=== PATIENT | male | born 1990 | race Two or more races ===

== ENCOUNTER 2024-07-09 17:57 | Inpatient (IN) | payer MEDICAID, OTHER ==
[~2024-07-09] VITALS: Ht 172.7 cm; Wt 74.7 kg
--- NOTE | 2024-07-09 18:51 | ECG ---
[facility] Test Date: 2024-07-09 Test Time: 18:06:15 Pat Name: EDI ROTH Department: ED Room: [address] [place] [address] Gender: M Biomedical Scientist: FEI : 1990 Requested By: LUCY MOORE Order Number: [id number] Reading MD: Jesus Will Measurements Intervals [place] Rate: 113 P: 47 IN: 131 QRS: 43 QRSD: 85 T: 31 QT: 291 QTc: 399 Interpretive Statements Sinus tachycardia Left ventricular hypertrophy ST elev, probable normal early repol pattern Baseline wander in lead(s) I,II,aVR,aVF Electronically Signed On 07-10-2024 10:26:29 PST by Jesus Will Please click the below link to view image of tracing.
--- NOTE | 2024-07-09 19:28 | ED.PDOC ---
HPI Comments HPI: Poor Historian. 34-year-old male presents to emergency department for evaluation of left-sided chest pain constant nonradiating for the last three days with the associated shortness of breath. Patient states he has been coughing. Patient denies use of drugs however he has history of methamphetamine abuse. Patient complains of generalized weakness Past Medcial History: Denies any. Past Surgical History: Finger surgery No known drug allergies REVIEW OF SYSTEMS: CONSTITUTIONAL: Denies acute: fever, diaphoresis, chills, HEAD: Denies acute: headache, photophobia Eyes: Denies acute: Double vision, vision loss, eye pain, eye discharge. EARS: Denies acute: tinnitus, hearing loss, ear discharge, ear pain, THROAT: Denies acute: sore throat, swelling, difficulty swallowing , pain with swallowing, change in voice. NECK: Denies acute: neck pain, neck swelling, stiff neck. HEART: Denies acute : , palpitations, LUNGS: Denies acute: wheezing, cough, hemoptysis ABDOMEN: Denies acute: abdominal pain, Nausea, Vomiting, diarrhea, melena , hematemesis, hematochezia SKIN: Denies acute: rash, redness, lesions, itchiness. EXTREMITIES: Denies acute: calf pain, numbness, tingling, weakness, denies pain in extremity. Denies acute: Low back pain. Neuro: Denies acute: focal neurological deficit, motor or sensory focal neurological deficit, tremors, seizure like activity, confusion, dizziness, change in mental status, loss of bowel or bladder function, cauda equina like symptoms. : Denies acute: dysuria, hematuria, flank pain, increase in urinary frequency. PSYCH: Denies acute: hallucination, suicidal ideation, homicidal ideation. PHYSICAL EXAM: General: no acute distress, awake and alert. Head: normocephalic, atraumatic. Neck: supple, trachea is midline, no swelling. Throat: Normal phonation. Eyes:, no erythema, no purulent discharge, no proptosis, no icterus. Heart: regular rate, regular rhythm, no significant murmur appreciated. Lungs: no apparent respiratory distress, Able to speak in full sentences. No wheezing, no rhonchi, no crackles. No stridors Clear to auscultation bilaterally. Abdomen: non tender to palpation, non distended, soft, no guarding, no rebound, + bowel sounds. Neuro: Awake, Alert, oriented to name, self, situation, follows commands GCS=15. Speech is normal. Skin: no petechia, no purpura, no cyanosis, non-pale, not jaundice. Lower extremities: --no - Pitting edema no deformity, no focal swelling, no calf TTP. Makes eye contact. moves all four extremities. Face: no apparent facial droop. Ambulating in the ED independently. Chief Complaint: Shortness of Breath Time Seen by MD: 18:17 Reviewed Notes: Nurses Notes, Allergies Allergies: Coded Allergies: NO KNOWN ALLERGIES (Unverified , 07/09/24) PT CONFIRMED NO KNOWN ALLERGIES. Information Source: Patient Mode of Arrival: Ambulatory Was a procedure done? Was a procedure done?: No X-Ray, Labs, Meds, VS Vital Signs Date Time Temp Pulse Resp B/P (MAP) Pulse Ox O2 Delivery O2 Flow Rate FiO2 07/09/24 18:22 99.1 110 18 110/69 (83) 96 07/09/24 18:17 113 Lab Test 07/09/24 20:55 07/09/24 19:25 07/09/24 19:15 Range/Units Troponin I High Sensitivity < 3 L < 3 L </=54 ng/L White Blood Count 16.1 H 4.4-10.8 10^3/uL Red Blood Count 4.82 4.5-5.90 10^6/uL Hemoglobin 14.6 13.5-17.5 g/dL Hematocrit 41.9 41.0-53.0 % Mean Corpuscular Volume 87.0 80.0-100.0 fL Mean Corpuscular Hemoglobin 30.2 28.0-32.0 pg Mean Corpuscular Hemoglobin Concent 34.8 32.0-36.0 g/dL Red Cell Distribution Width 13.9 11.8-14.3 % Platelet Count 299 140-450 10^3/uL Mean Platelet Volume 8.7 6.9-10.8 fL Neutrophils (%) (Auto) 37.0-80.0 % Lymphocytes (%) (Auto) 10.0-50.0 % Monocytes (%) (Auto) 0.0-12.0 % Basophils (%) (Auto) 0.0-2.0 % Neutrophils # (Auto) 1.6-8.6 10 ^3/uL Lymphocytes # (Auto) 0.4-5.4 10 ^3/uL Monocytes # (Auto) 0-1.3 10 ^3/uL Differential Total Cells Counted 100.0 100 Neutrophils % (Manual) 40 37.0-80.0 Band Neutrophils % (Manual) 45 Lymphocytes % (Manual) 7 L 10.0-50.0 Monocytes % (Manual) 8 0-12 Eosinophils % (Manual) 0 0-7 Basophils % (Manual) 0 0.0-2.0 Metamyelocytes % (manual) 0 Myelocytes % (Manual) 0 Promyelocytes % (Manual) 0 Blast Cells % (Manual) 0 Reactive Lymphocytes 0 Platelet Estimate Adequate Sodium Level 133 L 136-145 mmol/L Potassium Level 4.0 3.5-5.1 mmol/L Chloride Level 99 98-107 mmol/L Carbon Dioxide Level 23 20-31 mmol/L Anion Gap 11 5-15 Blood Urea Nitrogen 14 9-23 mg/dL Creatinine 1.17 0.700-1.30 mg/dL Glomerular Filtration Rate Calc 83 >90 mL/min BUN/Creatinine Ratio 12.0 10.0-20.0 Serum Glucose 123 H 74-106 mg/dL Lactic Acid Level 5.6 *H 0.4-2.0 mmol/L Calcium Level 9.5 8.7-10.4 mg/dL Magnesium Level 1.2 L 1.6-2.6 mg/dL Total Bilirubin 1.3 H 0.2-1.0 mg/dL Aspartate Amino Transferase (AST) 21 13-40 U/L Alanine Aminotransferase (ALT) 19 7-40 U/L Alkaline Phosphatase 50 46-116 U/L B-Type Natriuretic Peptide 258.70 0-100 pg/mL Total Protein 5.8 5.7-8.2 g/dL Albumin 3.9 3.2-4.8 g/dL Plasma/Serum Blood Alcohol < 3.0 <10 mg/dL Urine Color Light-orange Yellow Urine Clarity Turbid H Clear Urine pH 5.5 5.0-9.0 Urine Specific [place] 1.019 1.001-1.035 Urine Protein 1+ H Negative Urine Ketones Negative Negative Urine Blood Negative Negative /uL Urine Nitrite Negative Negative Urine Bilirubin Negative Negative Urine Urobilinogen Normal Negative mg/dL Urine Leukocyte Esterase Negative Negative /uL Urine RBC 1 0 - 3 /hpf Urine WBC 7 0 - 3 /hpf Urine Squamous Epithelial Cells None seen <5 /hpf Urine Bacteria None seen None Seen /hpf Urine Mucus Few None Seen Urine Sperm Present None Seen /hpf Urine Glucose Normal Normal mg/dL Urine Opiates Screen Neg NEGATIVE Urine Fentanyl Screen Neg NEGATIVE Urine Barbiturates Screen Neg NEGATIVE Urine Phencyclidine Screen Neg NEGATIVE Urine Amphetamines Screen Pos NEGATIVE Urine Benzodiazepines Screen Neg NEGATIVE Urine Cocaine Screen Neg NEGATIVE Urine Cannabinoids Screen Pos NEGATIVE [facility] [id number] [place] [id number] Ph: [phone] DIAGNOSTIC IMAGING Diagnostic Imaging Report : [id number] Signed PATIENT: EDI NORWOOD ACCT: [id number] UNIT: [id number] : 1990 LOC: ER ROOM / BED: / AGE / SEX: 34 / M ADM STATUS: REG ER SERVICE 18 ORDERING PHYSICIAN: LUCY MOORE DO PROCEDURE(s): CXRP - CHEST PORTABLE REASON: CP ORDER NUMBER(s): [id number], ACCESSION NUMBER(s): [id number] CHEST RADIOGRAPH Indication: CP Technique: Single frontal view of the chest was obtained Comparison: None FINDINGS: Lines and Tubes: None Lungs: Possible right infrahilar airspace disease and in the retrocardiac area of the left lower lobe. Pleura: No effusion. No pneumothorax. Cardiomediastinal contours: Unremarkable Bones: No acute osseous abnormality. IMPRESSION: 1. Possible right infrahilar left lower lobe airspace disease. This could also be due to overlying chest soft tissues. A lateral chest x-ray would be helpful. ATED BY: DIANA GERARDO Jr., DO DICTATED DATE/TIME: 07/09/241932 SIGNED BY: DIANA GERARDO Jr., SIGNED DATE/TIME: 07/09/241932 CC: Patient Education/Counseling: Diagnosis, Treatment Family Education/Counseling: No Family Present Departure 1 Departure Time of Disposition: 20:34 Impression: Primary Impression: Chest pain Additional Impressions: Dyspnea Pneumonia Leukocytosis Methamphetamine abuse Elevated lactic acid level Hypomagnesemia Disposition: ADMITTED INPATIENT Admit to: [facility] Condition: Guarded Discharged With: Self Critical Care Note Critical Care Time?: No I personally scribed for LUCY MOORE DO ([facility] on 07/09/24 at 20:20. Electronically submitted by [place] ([facility] I personally scribed for LUCY MOORE DO ([email or web address]) on 07/09/24 at 22:20. Electronically submitted by [place]eral[place] ([facility]). LUCY MOORE DO Jul 09, 2024 19:28
--- NOTE | 2024-07-09 19:35 | DVH ---
CHEST RADIOGRAPH Indication: CP Technique: Single frontal view of the chest was obtained Comparison: None FINDINGS: Lines and Tubes: None Lungs: Possible right infrahilar airspace disease and in the retrocardiac area of the left lower lobe . Pleura: No effusion. No pneumothorax. Cardiomediastinal contours: Unremarkable Bones: No acute osseous abnormality. IMPRESSION: 1. Possible right infrahilar left lower lobe airspace disease. This could also be due to overlying ch est soft tissues. A lateral chest x-ray would be helpful.
[2024-07-09 20:01] LABS: Hematocrit 41.9 % (41.0-53.0); Hemoglobin 14.6 g/dL (13.5-17.5); Mean Corpuscular Hemoglobin 30.2 pg (28.0-32.0); Mean Corpuscular Hgb Conc. 34.8 g/dL (32.0-36.0); Platelet Count (auto) 299 10^3/uL (140-450); Red Blood Cells 4.82 10^6/uL (4.5-5.90); Red Cell Distribution Width 13.9 % (11.8-14.3); White Blood Cell 16.1 10^3/uL (4.4-10.8)
[2024-07-09 20:14] LABS: Basophils % (manual) 0 (0.0-2.0); Blast Cells 0; Eosinophils % (manual) 0 (0-7); Metamyelocytes % 0; Myelocytes % 0; Promyelocytes % 0; Reactive Lymphocytes 0
[2024-07-09 20:21] LABS: Alanine Aminotransferase 19 U/L (7-40); Albumin 3.9 g/dL (3.2-4.8); Alkaline Phosphatase 50 U/L (46-116); Anion Gap 11 (5-15); Aspartate Aminotransferase 21 U/L (13-40); Blood Urea Nitrogen 14 mg/dL (9-23); Calcium 9.5 mg/dL (8.7-10.4); Carbon Dioxide 23 mmol/L (20-31); Chloride 99 mmol/L (98-107)
[2024-07-09 20:22] LABS: Total Protein 5.8 g/dL (5.7-8.2)
[2024-07-09 20:22] LABS: Urine Bacteria None Seen /hpf (None Seen)
[2024-07-09 20:27] LABS: Bilirubin, Total 1.3 mg/dL (0.2-1.0); Glucose 123 mg/dL (74-106); Sodium 133 mmol/L (136-145)
[2024-07-09 20:42] LABS: Blood Alcohol < 3.0 mg/dL (<10); Magnesium 1.2 mg/dL (1.6-2.6)
[2024-07-09 20:53] LABS: Lactic Acid w/Reflex 5.6 mmol/L (0.4-2.0)
[2024-07-09 20:56] LABS: Amphetamine Screen, Urine Pos (NEGATIVE); Barbiturate Scree,Urine Neg (NEGATIVE); Benzodiazephine Screen, Urine Neg (NEGATIVE); Cannabinoid Screen, Urine Pos (NEGATIVE); Cocaine Screen, Urine Neg (NEGATIVE); Opiate Scree,Urine Neg (NEGATIVE)
[2024-07-09 20:57] LABS: Phencyclidine Screen, Urine Neg (NEGATIVE)
[2024-07-09] MEDS ORDERED: TEMAZEPAM 15 MG CAP PO PRN (21:00)
--- NOTE | 2024-07-09 21:13 | DVHHP2 ---
History of Present Illness Reason for Visit: Shortness of breath History of Present Illness 34-year-old male presents for evaluation of gait shortness for breath. Patient reports a three day history of worsening shortness for breath with associated productive cough with yellow/green phlegm and intermittent fever. Denies chest pain or palpitations. Denies any other acute complaints at the moment. Past Medical History Denies Past Surgical History Denies Family History Noncontributory Smoke: No ALCOHOL: occassional Drugs: Other (Amphetamine) Lives: Homeless Review of Systems Review of Systems Review of systems are currently negative otherwise addressed in HPI. Exam Vital Signs Vital Signs Date Time Temp Pulse Resp B/P (MAP) Pulse Ox O2 Delivery O2 Flow Rate FiO2 07/09/24 18:22 99.1 110 18 110/69 (83) 96 Exam Gen: 34-year-old male in mild distress Skin: Warm, dry, normal color and texture, no rash. HEENT: Normocephalic atraumatic, mucous membranes moist and pink. Neck: Cervical and supraclavicular nodes normal without enlargement, trachea is midline, thyroid gland is normal without masses. Pulmonary: Diminished breath sounds bilaterally Cardiac: Regular rate and rhythm. No murmur Abdomen: Soft, nontender, nondistended, bowel sounds present all 4 quadrants, no guarding, no rigidity, no organomegaly. Extremities: No cyanosis, clubbing, no edema Neuro: Cranial nerves II through XII grossly intact, normal affect and speech, no focal motor deficits. Labs/Xrays ORDERING PHYSICIAN: LUCY MOORE DO PROCEDURE(s): CXRP - CHEST PORTABLE REASON: ORDER NUMBER(s): [id number], ACCESSION NUMBER(s): [id number] CHEST RADIOGRAPH Indication: CP Technique: Single frontal view of the chest was obtained Comparison: None FINDINGS: Lines and Tubes: None Lungs: Possible right infrahilar airspace disease and in the retrocardiac area of the left lower lobe. Pleura: No effusion. No pneumothorax. Cardiomediastinal contours: Unremarkable Bones: No acute osseous abnormality. IMPRESSION: 1. Possible right infrahilar left lower lobe airspace disease. This could also be due to overlying chest soft tissues. A lateral chest x-ray would be helpful. Labs Test 1/8/25 20:55 07/09/24 19:25 07/09/24 19:15 Range/Units White Blood Count 16.1 H 4.4-10.8 10^3/uL Red Blood Count 4.82 4.5-5.90 10^6/uL Hemoglobin 14.6 13.5-17.5 g/dL Hematocrit 41.9 41.0-53.0 % Mean Corpuscular Volume 87.0 80.0-100.0 fL Mean Corpuscular Hemoglobin 30.2 28.0-32.0 pg Mean Corpuscular Hemoglobin Concent 34.8 32.0-36.0 g/dL Red Cell Distribution Width 13.9 11.8-14.3 % Platelet Count 299 140-450 10^3/uL Mean Platelet Volume 8.7 6.9-10.8 fL Neutrophils (%) (Auto) 37.0-80.0 % Lymphocytes (%) (Auto) 10.0-50.0 % Monocytes (%) (Auto) 0.0-12.0 % Basophils (%) (Auto) 0.0-2.0 % Neutrophils # (Auto) 1.6-8.6 10 ^3/uL Lymphocytes # (Auto) 0.4-5.4 10 ^3/uL Monocytes # (Auto) 0-1.3 10 ^3/uL Sodium Level 133 L 136-145 mmol/L Potassium Level 4.0 3.5-5.1 mmol/L Chloride Level 99 98-107 mmol/L Carbon Dioxide Level 23 20-31 mmol/L Anion Gap 11 5-15 Blood Urea Nitrogen 14 9-23 mg/dL Creatinine 1.17 0.700-1.30 mg/dL Glomerular Filtration Rate Calc 83 >90 mL/min BUN/Creatinine Ratio 12.0 10.0-20.0 Serum Glucose 123 H 74-106 mg/dL Lactic Acid Level 5.6 *H 0.4-2.0 mmol/L Calcium Level 9.5 8.7-10.4 mg/dL Magnesium Level 1.2 L 1.6-2.6 mg/dL Total Bilirubin 1.3 H 0.2-1.0 mg/dL Aspartate Amino Transferase (AST) 21 13-40 U/L Alanine Aminotransferase (ALT) 19 7-40 U/L Alkaline Phosphatase 50 46-116 U/L B-Type Natriuretic Peptide 258.70 0-100 pg/mL Total Protein 5.8 5.7-8.2 g/dL Albumin 3.9 3.2-4.8 g/dL Plasma/Serum Blood Alcohol < 3.0 <10 mg/dL Urine Opiates Screen Neg NEGATIVE Urine Fentanyl Screen Neg NEGATIVE Urine Barbiturates Screen Neg NEGATIVE Urine Phencyclidine Screen Neg NEGATIVE Urine Amphetamines Screen Pos NEGATIVE Urine Benzodiazepines Screen Neg NEGATIVE Urine Cocaine Screen Neg NEGATIVE Urine Cannabinoids Screen Pos NEGATIVE Assessment/Plan Assessment/Plan Assessment Community-acquired pneumonia Acute respiratory distress Hypomagnesemia Leukocytosis Plan Admit the patient to Med surge to the hospitalist Rocephin/azithromycin Med nebs Replete electrolytes Continue treatment per orders. Plan discussed with: Patient My Orders Orders - CHRISSIE PEÑALOZA Procedure Category Date Status Time Rapid Influenza A&B LAB 07/09/24 Transmitted 21:00 Azithromycin 500mg/ PHA 07/10/24 Logged 250ml (Zithromax 50 10:00 Ceftriaxone Ivpb PHA 07/10/24 Transmitted Rocephin 09:00 Magnesium Josh PHA 07/09/24 Transmitted 21:00 Albuterol Medneb PHA 07/09/24 Transmitted (Ventolin Medneb) 21:00 Methylprednisolone PHA 07/09/24 Transmitted Sod Succ (Solu Medrol 21:00 Basic Metabolic Panel LAB 07/10/24 Verified 04:00 Admit ADMIT 07/09/24 Transmitted 21:00 Temazepam (Restoril) PHA 07/09/24 Transmitted 21:00 Ondansetron Hcl PHA 07/09/24 Transmitted (Zofran) 21:00 Complete Blood Count LAB 07/10/24 Verified 04:00 Condition: Stable BALBIR 07/09/24 Transmitted 21:00 Acetaminophen Tablet PHA 07/09/24 Transmitted (Tylenol Tablet) 21:00 Bedrest With Bathroom BALBIR 07/09/24 Transmitted Privileg 21:00 Regular Diet DIET 07/10/24 Transmitted Breakfast Date of Service: Jul 09, 2024 Billing Provider: CHRISSIE PEÑALOZA Common Visit Codes: [id number] INP/OBS CARE (HIGH) CHRISSIE PEÑALOZA Jul 09, 2024 21:13
[2024-07-09 21:15] LABS: Band Neutrophils % (manual) 45; Lymphocytes % (manual) 7 (10.0-50.0); Monocytes % (manual) 8 (0-12)
[2024-07-09 21:16] LABS: Platelet Estimate Adequate
[2024-07-09 21:18] LABS: Urine Blood Negative /uL (Negative); Urine Clarity Turbid (Clear); Urine Color Light-Orange (Yellow); Urine Mucus FEW (None Seen); Urine Protein, UAD 1+ (Negative); Urine Specific Gravity 1.019 (1.001-1.035); Urine Sperm PRESENT /hpf (None Seen); Urine Squamous Epithelial Cell None Seen /hpf (<5); Urine Urobilinogen Normal (Negative); Urine WBC 7 /hpf (0 - 3); Urine pH 5.5 (5.0-9.0)
[2024-07-10] VITALS (12 sets, daily range): BP systolic 80–110; BP diastolic 33–69; PULSE 88–110; RESP 16–20; TEMP 97.8–100.4; O2SAT 93–99
[2024-07-10] MEDS: D5W/SOD CHLO 0.9% 1,000 ML IV SCH (01:00)
[2024-07-10] MEDS: cefTRIAXone 1GM/50ML D5W 50 ML IV SCH (01:30)
[2024-07-10] MEDS: ACETAMINOPHEN 325 MG TAB PO PRN (02:45)
[2024-07-10] MEDS: MAGNESIUM SULFATE 1GM/100ML 100 ML IV SCH ×2 (02:51→04:00)
[2024-07-10 04:44] LABS: Hemoglobin 13.5 g/dL (13.5-17.5); Mean Corpuscular Hemoglobin 30.1 pg (28.0-32.0); Mean Corpuscular Hgb Conc. 34.5 g/dL (32.0-36.0); Mean Corpuscular Volume 87.3 fL (80.0-100.0); Platelet Count (auto) 243 10^3/uL (140-450); Red Blood Cells 4.47 10^6/uL (4.5-5.90); Red Cell Distribution Width 14.1 % (11.8-14.3); White Blood Cell 15.1 10^3/uL (4.4-10.8)
[2024-07-10 04:50] LABS: Potassium 4.4 mmol/L (3.5-5.1)
[2024-07-10 04:51] LABS: Anion Gap 7 (5-15); Carbon Dioxide 26 mmol/L (20-31)
[2024-07-10 04:56] LABS: BUN/Creatinine Ratio 19.5 (10.0-20.0); Glucose 103 mg/dL (74-106)
[2024-07-10 05:00] LABS: Basophils % (manual) 0 (0.0-2.0); Blast Cells 0; Eosinophils % (manual) 0 (0-7); Myelocytes % 0; Promyelocytes % 0; Reactive Lymphocytes 0
[2024-07-10 05:01] LABS: Blood Urea Nitrogen 23 mg/dL (9-23); Chloride 96 mmol/L (98-107); Sodium 129 mmol/L (136-145)
[2024-07-10] MEDS: ALBUTEROL SULF 2.5 MG/0.5ML(0.5%) NEB SOLN NEB PRN (06:42)
[2024-07-10] MEDS: methylPREDNISolone SOD SUCC 125 MG/2 ML VL IV ONE (07:10)
[2024-07-10] MEDS: cefTRIAXone 1GM/50ML D5W 50 ML IV ONE (07:17)
[2024-07-10 08:26] LABS: Band Neutrophils % (manual) 40; Metamyelocytes % 2
[2024-07-10 08:27] LABS: Lymphocytes % (manual) 5 (10.0-50.0); Monocytes % (manual) 2 (0-12)
[2024-07-10 08:28] LABS: Platelet Estimate Adequate; RBC Morphology Normal
[2024-07-10 08:52] LABS: COVID19 ANTIGEN SOFIA FIA NEGATIVE (NEGATIVE); Rapid Influenza A Negative (Negative); Rapid Influenza B Negative (Negative)
[2024-07-10] MEDS: AZITHROMYCIN 500MG/ 250ML 250 ML IV SCH (10:00)
--- NOTE | 2024-07-10 10:22 | DVHPNRES ---
Progress Note Date Seen: Jul 10, 2024 Resident Creating Document: FAB MELGAR RESIDENT Medical Necessity Reason Pt with a Central, PICC or Fol: No Subjective Review of Systems Patient is 34 years old male with polysubstance abuse came with a complaint of shortness of breaths for last 2 days. As per patient patient has been having productive cough with greenish yellowish phlegm and intermittent fever for last 2 days. Patient also reported feeling short of breath for the same duration. Patient reported any sick contact. Patient denied any dysuria, constipation or diarrhea, acute joint pain or swelling, dysarthria or change in vision. Initial lab workup revealed leukocytosis with WBC 16.1, mild hyponatremia with sodium 130 3> 129, lactic acidosis with lactic acid 5.6, hypomagnesemia with a magnesium 1.2, bilirubin 1.3, mildly elevated BNP 258, UDS positive for amphetamine and cannabinoids. Urinalysis negative for UTI. Chest x-ray - Possible right infrahilar left lower lobe airspace disease. This could also be due to overlying chest soft tissues. Echo 2D revealed-Ejection fraction is estimated at 50-55%. PA systolic pressure is estimated at 20-25 mm Hg. PMH-nonsignificant PSH- none Allergy- NKDA Personal History/ Social History- alcoholic, smoker, uses polysubstance like cannabinoids and amphetamine Patient was seen today at the bedside. Gastrointestinal- denies any rectal bleeding, nausea or vomiting Musculoskeletal-denies acute joint swelling or tenderness or redness Neurological- denies acute dysarthria, dysphagia, change in vision Psychiatry- denies depression or SI or HI Skin- denies acute rash or purpura Patient was seen today for clinical evaluation. Labs and chart reviewed. Patient had mild fever last night 100.4 F, patient still on NC O2 2 liter/minute for acute hypoxic respiratory failure. Patient on IV antibiotic ceftriaxone and azithromycin, tolerating well, no side effect noted, ordered blood culture, urine culture, respiratory culture for further evaluation and care. Objective vital signs Vital Sign Date Time Temp Pulse Resp B/P (MAP) Pulse Ox O2 Delivery O2 Flow Rate FiO2 07/10/24 09:30 98.1 88 16 88/37 (54) 99 98.1 07/10/24 06:42 Nasal Cannula* 2 28 medications Current Medications Medications Dose Ordered Sig/Cj Route Start Time Stop Time Status Last Admin Dose Admin Azithromycin 250 ml @ 125 mls/hr DAILY IV 07/10/24 10:00 Ceftriaxone Sodium 50 ml @ 100 mls/hr DAILY@2300 IV 07/10/24 23:00 Albuterol 2.5 mg Q6HPRN PRN NEB 07/09/24 21:00 07/10/24 06:42 2.5 MG Temazepam 15 mg QHSP PRN PO 07/09/24 21:00 Ondansetron HCl 4 mg Q4HP PRN IV 07/09/24 21:00 Acetaminophen 650 mg Q6HP PRN PO 07/09/24 21:00 07/10/24 02:45 650 MG Dextrose/Sodium Chloride 1,000 ml @ 125 mls/hr Q8H IV 07/10/24 07:15 Morphine Sulfate 1 mg Q6HP PRN IV 07/10/24 08:30 Examination General examination- awake, alert, oriented, conversant HEENT- PEERLA, no acute nasal discharge Cardiovascular- S1-S2 audible, rate and rhythm regular, no murmur Respiratory-bilateral lung congestion + Gastrointestinal-nontender, bowel sound+. Nondistended Musculoskeletal-no acute joint swelling or tenderness or redness# Lower extremity- no leg edema Neurological- cranial nerves intact, no acute dysarthria or dysphagia Psychiatry- denies depression or SI or HI Skin- no acute rash or purpura laboratory and microbiology Laboratory Tests 07/10/24 04:20 Test 07/10/24 04:20 Range/Units Serum Glucose 103 74-106 mg/dL Problem List/Assessment/Plan Problem List/Assessment/Plan #Sepsis likely due to pneumonia-patient was fever, tachycardia, leukocytosis, hypotension #Acute hypoxic respiratory failure likely due to pneumonia Gram-positive versus Gram-negative #Acute pneumonia Gram-positive versus Gram-negative #Acute chest pain likely due to pruritus, rule out acute coronary syndrome #Leukocytosis likely due to acute Pneumonia #Hyponatremia-asymptomatic #Lactic acidosis #Polysubstance abuse-UDS positive for cannabinoids and amphetamine-patient was counseled about the effect of polysubstance on health Patient was counseled about the effect of alcoholism/smoking/polysubstance abuse on health Continue ceftriaxone 1 g IV daily Continue azithromycin 500 mg IV daily Continue D5ANS at rate of 125 mL/hour Nebulization as prescribed Monitor vitals Goals of care/advance care planning; FULL CODE; discussed with the patient >15 minutes PUD prophylaxis: Famotidine DVT prophylaxis: Plan discussed with Dr. Alvarez, nursing staff, patient Total time spent on patient evaluation, chart review, assessment and plan, discussion discussion >30 minutes Plan discussed with: Patient Plan discussed with: Patient, Other (RN) My Orders My Orders Orders - FAB MELGAR Procedure Category Date Status Time D5w/Sod Chlo 0.9% PHA 07/10/24 In Process (D5w Ns 0.9%) 07:15 Morphine Sulfate PHA 07/10/24 In Process Injection 08:30 Echo 2d Mode Cardiac US 07/10/24 Logged DOP 08:48 Electrocardigram EKG 07/10/24 Logged 09:54 Date of Service: Jul 10, 2024 Billing Provider: WILEY ALVAREZ MD Common Visit Codes: [id number] INP/OBS CARE(HIGH) FAB MELGAR Jul 10, 2024 10:22 WILEY ALVAREZ MD Jul 10, 2024 18:58
[2024-07-10] MEDS: SODIUM CHLORIDE 0.9% 1,000 ML IV ONE ×3 (10:47→23:00)
[2024-07-10] MEDS: THIAMINE 100mg/ml INJ (200mg/2ml VIAL) IM ONE (13:10)
[2024-07-10] MEDS: FOLIC ACID 1 MG in D5W 5% 50 ML INJ ONE (13:11)
--- NOTE | 2024-07-10 15:10 | DVHSR ---
APPROVED REPORT EXAM: Two-dimensional and M-mode echocardiogram with Doppler and color Doppler. Blood Pressure: 97/43 mmHg INDICATION Chest Pain RISK FACTORS Height: 5'8", Weight: 149 DIMENSIONS LVDd5.2 (3.8-5.7cm)LA (2D)4.0 (1.9-4.0cm)Aortic Root3.2 (2.0-3.7cm) LVDs4.2 (2.5-4.0cm)LA (MM) (1.9-4.0cm)Aortic Cusp Exc1.9 (1.5-2.0cm) EF (%) 50.0 (55-70%)Rt. Atrium4.3 (1.9-4.0cm)Asc. Aorta3.1 cm IVSd1.0 (0.7-1.1cm)RV (D)4.5 (1.8-2.4cm) PWd0.9 (0.7-1.1cm) Mitral Valve MitralMitral Stenosis E wave0.75m/sMV Mean GR.mmHg A wave0.86m/sMV Peak GR.mmHg E/A ratio0.92D MVAcm2 DECEL [id number] 1/2 Timems Aortic Valve Aortic ValveAortic Stenosis V11.11m/Yimi Mean GR.4mmHg V21.23m/Yimi Peak GR.6mmHg LVOT Diameter2.3 (1.8-2.4cm)Doppler AVA3.75cm2 Pulmonic Valve V20.84m/s Tricuspid Valve TR Velocity2.10m/s [id number] LEFT VENTRICLE The left ventricle is of normal size. Wall thickness is normal. Ejection fraction is low normal and is estimated at 50-55%. There is no regional wall motion abnormalities. Diastolic function appears to be normal. E to E prime ratio is in the normal range. RIGHT VENTRICLE The right ventricle is of normal size. Right ventricular systolic function is normal. ATRIA Both atria are of normal size. MITRAL VALVE Normal structure and function. No significant mitral regurgitation. PULMONIC VALVE Likely normal. TRICUSPID VALVE Normal structure and function. There is trace tricuspid regurgitation. PA systolic pressure is karson mated at 20-25 mm Hg. AORTIC VALVE Normal structure and function. GREAT VESSELS The aortic root is of normal size. Proximal ascending aorta is of normal size. PERICARDIAL EFFUSION There is no pericardial effusion. IVC is of normal size and collapses normally with inspiration. Conclusion Normal left ventricular size with low-normal systolic function. Ejection fraction is estimated at 50-55%. Normal right ventricular size and systolic function. No hemodynamically significant valvular disease. PA systolic pressure is estimated at 20-25 mm Hg. No pericardial effusion.
[2024-07-10] MEDS: FAMOTIDINE (10MG/ML) 2ML VL IV ONE (21:36)
[2024-07-10] MEDS: MORPHINE SULFATE INJ 2 MG/ml SYRG IV ONE (21:36)
[2024-07-10] MEDS: FAMOTIDINE (10MG/ML) 2ML VL IV SCH (22:00)
[2024-07-11] VITALS (9 sets, daily range): BP systolic 106–112; BP diastolic 59–62; PULSE 75–94; RESP 16–21; TEMP 98.7–99.4; O2SAT 94–100
[2024-07-11] MEDS: NOREPINEPHRINE 8 MG/250ML KIT 250 ML IV SCH (02:31)
[2024-07-11] MEDS: ALBUTEROL SULF 2.5 MG/0.5ML(0.5%) NEB SOLN NEB ONE (07:00)
[2024-07-11] MEDS: IPRATROPIUM BROM 0.5 MG/2.5ML INH SOL NEB ONE (07:00)
[2024-07-11] MEDS: SODIUM CHLORIDE 0.9% 1,000 ML IV ONE (07:10)
--- NOTE | 2024-07-11 07:38 | DVH ---
CLINICAL INFORMATION: 34 years old, Male; shortness of breath. TECHNIQUE: Frontal and lateral chest radiographs were obtained. COMPARISON: None FINDINGS: Lungs: Atelectasis in the lung bases. No focal consolidation visualized. No pneumothorax or pleural e ffusion visualized. Cardiac: Heart size is within normal limits. Pulmonary vasculature: Unremarkable Mediastinum/saida: Within normal limits. Bones: No evidence of acute osseous abnormality. Other: No other significant finding. IMPRESSION: Bibasilar atelectasis with no focal consolidation visualized. Otherwise, no evidence of acute disease in the chest.
[2024-07-11 07:44] LABS: Basophils # (auto) 0 10 ^3/uL (0-0.2); Basophils % (auto) 0.1 % (0.0-2.0); Eosinophils # (auto) 0 10 ^3/uL (0-0.8); Hematocrit 34.5 % (41.0-53.0); Hemoglobin 11.7 g/dL (13.5-17.5); Lymphocytes # (auto) 0.9 10 ^3/uL (0.4-5.4); Mean Corpuscular Hemoglobin 29.8 pg (28.0-32.0); Mean Corpuscular Hgb Conc. 33.9 g/dL (32.0-36.0); Monocytes # (auto) 0.7 10 ^3/uL (0-1.3); Monocytes % (auto) 3.1 % (0.0-12.0); Neutrophils # (auto) 20.5 10 ^3/uL (1.6-8.6); Neutrophils % (auto) 92.8 % (37.0-80.0); Platelet Count (auto) 260 10^3/uL (140-450); Red Blood Cells 3.92 10^6/uL (4.5-5.90); Red Cell Distribution Width 14.2 % (11.8-14.3); White Blood Cell 22.2 10^3/uL (4.4-10.8)
[2024-07-11 07:45] LABS: Anion Gap 5 (5-15); Carbon Dioxide 25 mmol/L (20-31); Chloride 106 mmol/L (98-107); Potassium 4.5 mmol/L (3.5-5.1); Sodium 136 mmol/L (136-145)
[2024-07-11 07:46] LABS: Calcium 9.1 mg/dL (8.7-10.4)
[2024-07-11 07:51] LABS: BUN/Creatinine Ratio 24.3 (10.0-20.0); Blood Urea Nitrogen 17 mg/dL (9-23)
[2024-07-11 07:54] LABS: Glucose 111 mg/dL (74-106); Magnesium 2.6 mg/dL (1.6-2.6)
[2024-07-11] MEDS: MEROPENEM 1GM IVPB 50 ML IV ONE (09:35)
[2024-07-11] MEDS: MORPHINE SULFATE INJ 2 MG/ml SYRG IV PRN (11:30)
[2024-07-11] MEDS: ONDANSETRON HCL 4 MG/2 ML VIAL IV PRN (11:30)
[2024-07-11] MEDS: IPRATROPIUM BROM 0.5 MG/2.5ML INH SOL NEB SCH (11:45)
[2024-07-11] MEDS ORDERED: VANCOMYCIN PER PHARMACY 0 MG IV SCH (11:45)
[2024-07-11] MEDS: ALBUTEROL SULF 2.5 MG/0.5ML(0.5%) NEB SOLN NEB SCH (11:45)
[2024-07-11] MEDS: VANCOMYCIN 1.5GM/300ML 300 ML IV ONE (13:16)
--- NOTE | 2024-07-11 14:59 | DVHPNRES ---
Progress Note Date Seen: Jul 11, 2024 Resident Creating Document: FAB MELGAR RESIDENT Medical Necessity Reason Pt with a Central, PICC or Fol: No Subjective Review of Systems Patient is 34 years old male with polysubstance abuse came with a complaint of shortness of breaths for last 2 days. As per patient patient has been having productive cough with greenish yellowish phlegm and intermittent fever for last 2 days. Patient also reported feeling short of breath for the same duration. Patient reported any sick contact. Patient denied any dysuria, constipation or diarrhea, acute joint pain or swelling, dysarthria or change in vision. Initial lab workup revealed leukocytosis with WBC 16.1, mild hyponatremia with sodium 130 3> 129, lactic acidosis with lactic acid 5.6, hypomagnesemia with a magnesium 1.2, bilirubin 1.3, mildly elevated BNP 258, UDS positive for amphetamine and cannabinoids. Urinalysis negative for UTI. Chest x-ray - Possible right infrahilar left lower lobe airspace disease. This could also be due to overlying chest soft tissues. Echo 2D revealed-Ejection fraction is estimated at 50-55%. PA systolic pressure is estimated at 20-25 mm Hg. PMH-nonsignificant PSH- none Allergy- NKDA Personal History/ Social History- alcoholic, smoker, uses polysubstance like cannabinoids and amphetamine Patient was seen today at the bedside. Gastrointestinal- denies any rectal bleeding, nausea or vomiting Musculoskeletal-denies acute joint swelling or tenderness or redness Neurological- denies acute dysarthria, dysphagia, change in vision Psychiatry- denies depression or SI or HI Skin- denies acute rash or purpura Patient was seen today for clinical evaluation. Labs and chart reviewed. Patient is tired looking, leukocyte was elevated 16.1> 22.2. Discontinued ceftriaxone and azithromycin and ordered meropenem and vancomycin. Objective vital signs Vital Sign Date Time Temp Pulse Resp B/P (MAP) Pulse Ox O2 Delivery O2 Flow Rate FiO2 07/11/24 12:28 78 18 100 07/11/24 12:20 Room Air* 0 21 07/11/24 12:00 108/67 07/11/24 08:00 98.0 98.0 Total Intake and Output 07/10/24 07/10/24 07/11/24 15:00 23:00 07:00 Intake Total 1000 ml 2255.00 ml Output Total 1300 ml Balance 1000 ml 955.00 ml medications Current Medications Medications Dose Ordered Sig/Cj Route Start Time Stop Time Status Last Admin Dose Admin Albuterol 2.5 mg Q6HPRN PRN NEB 07/09/24 21:00 07/10/24 06:42 2.5 MG Temazepam 15 mg QHSP PRN PO 07/09/24 21:00 Ondansetron HCl 4 mg Q4HP PRN IV 07/09/24 21:00 07/11/24 11:30 4 MG Acetaminophen 650 mg Q6HP PRN PO 07/09/24 21:00 07/10/24 02:45 650 MG Dextrose/Sodium Chloride 1,000 ml @ 125 mls/hr Q8H IV 07/10/24 07:15 07/11/24 10:48 125 MLS/HR Morphine Sulfate 1 mg Q6HP PRN IV 07/10/24 08:30 07/11/24 11:30 1 MG Famotidine 20 mg Q12HR IV 07/10/24 22:00 07/11/24 10:45 20 MG Norepinephrine Bitartrate 250 ml @ 3.75 mls/hr Q24H IV 07/11/24 02:15 07/11/24 02:31 3.75 MLS/HR Albuterol 2.5 mg Q6HWA [facility] 07/11/24 12:00 07/11/24 12:20 2.5 MG Ipratropium [place] 0.5 mg Q6HWA [facility] 07/11/24 12:00 07/11/24 12:20 0.5 MG Meropenem 50 ml @ 17 mls/hr Q8HR IV 07/11/24 14:00 Vancomycin HCl 0 ml @ 0 mls/hr UD IV 07/11/24 11:45 Vancomycin HCl 250 ml @ 200 mls/hr Q12H IV 07/12/24 01:00 Examination General examination- awake, alert, oriented, conversant HEENT- PEERLA, no acute nasal discharge Cardiovascular- S1-S2 audible, rate and rhythm regular, no murmur Respiratory-bilateral lung congestion + Gastrointestinal-nontender, bowel sound+. Nondistended Musculoskeletal-no acute joint swelling or tenderness or redness# Lower extremity- no leg edema Neurological- cranial nerves intact, no acute dysarthria or dysphagia Psychiatry- denies depression or SI or HI Skin- no acute rash or purpura laboratory and microbiology Laboratory Tests 07/11/24 06:10 Test 07/11/24 06:10 Range/Units Serum Glucose 111 H 74-106 mg/dL Microbiology Date/Time Source Procedure Growth Status 07/10/24 12:00 Blood Blood Culture - Preliminary NO GROWTH AFTER 24 HOURS OF INCUBATION. Resulted 07/09/24 19:15 Voided Urine Urine Culture - Preliminary Resulted Problem List/Assessment/Plan Problem List/Assessment/Plan #Sepsis likely due to pneumonia-patient was fever, tachycardia, leukocytosis, hypotension #Acute hypoxic respiratory failure likely due to pneumonia Gram-positive versus Gram-negative #Acute pneumonia Gram-positive versus Gram-negative #Acute chest pain likely due to pruritus, rule out acute coronary syndrome #Leukocytosis likely due to acute Pneumonia #Hyponatremia-asymptomatic #Lactic acidosis #Polysubstance abuse-UDS positive for cannabinoids and amphetamine-patient was counseled about the effect of polysubstance on health Patient was counseled about the effect of alcoholism/smoking/polysubstance abuse on health Continue meropenem 1 g IV q.8h Vancomycin as per pharmacy Continue D5ANS at rate of 125 mL/hour Nebulization as prescribed Monitor vitals Goals of care/advance care planning; FULL CODE; discussed with the patient >15 minutes PUD prophylaxis: Famotidine DVT prophylaxis: Plan discussed with Dr. Alvarez, nursing staff, patient Total time spent on patient evaluation, chart review, assessment and plan, discussion discussion >30 minutes Plan discussed with: Patient Plan discussed with: Patient, Other (RN) My Orders My Orders Orders - FAB MELGAR RESIDENT Procedure Category Date Status Time Famotidine Injection PHA 07/10/24 In Process (Pepcid Injection) 22:00 Transfer Orders XFER 07/10/24 Transmitted 18:59 Chest Two Views XY 07/11/24 Resulted Routine 06:34 Albuterol Medneb PHA 07/11/24 In Process (Ventolin Medneb) 12:00 Ipratropium Medneb PHA 07/11/24 In Process (Atrovent Medneb) 12:00 Meropenem 1gm Ivpb PHA 07/11/24 In Process (Merrem 1gm/ Ns) 14:00 Vancomycin Per PHA 07/11/24 In Process Pharmacy 11:45 Vancomycin PHA 07/12/24 In Process 1.25gm/250ml 01:00 Vancomycin,Trough LAB 07/13/24 Verified 00:00 Vancomycin Per BALBIR 07/13/24 In Process Pharmacy Protoc 00:00 Basic Metabolic Panel LAB 07/13/24 Verified 04:00 Transfer Orders XFER 07/11/24 Transmitted 14:52 Communication Order ORDERS 07/11/24 Transmitted 14:52 Date of Service: Jul 11, 2024 Billing Provider: WILEY ALVAREZ MD Common Visit Codes: [id number] INP/OBS CARE(HIGH) FAB MELGAR RESIDENT Jul 11, 2024 14:59 WILEY ALVAREZ MD Jul 13, 2024 18:21
[2024-07-11] MEDS: MEROPENEM 1GM IVPB 50 ML IV SCH (15:00)
[2024-07-12] VITALS (9 sets, daily range): BP systolic 117–135; BP diastolic 70–82; PULSE 78–110; RESP 16–36; TEMP 98–102.5; O2SAT 95–99
[2024-07-12] MEDS: VANCOMYCIN 1.25GM/250ML 250 ML IV SCH (01:49)
[2024-07-12] MEDS: SODIUM CHLORIDE 0.9% 1,000 ML IV ONE (05:33)
[2024-07-12 08:40] LABS: Basophils # (auto) 0 10 ^3/uL (0-0.2); Basophils % (auto) 0.2 % (0.0-2.0); Eosinophils # (auto) 0.1 10 ^3/uL (0-0.8); Eosinophils % (auto) 0.3 % (0.0-7.0); Hematocrit 38.3 % (41.0-53.0); Hemoglobin 12.4 g/dL (13.5-17.5); Lymphocytes # (auto) 0.7 10 ^3/uL (0.4-5.4); Lymphocytes % (auto) 3.2 % (10.0-50.0); Mean Corpuscular Hemoglobin 29.9 pg (28.0-32.0); Mean Corpuscular Hgb Conc. 32.5 g/dL (32.0-36.0); Mean Corpuscular Volume 92.1 fL (80.0-100.0); Monocytes % (auto) 4.8 % (0.0-12.0); Neutrophils # (auto) 19.5 10 ^3/uL (1.6-8.6); Neutrophils % (auto) 91.5 % (37.0-80.0); Platelet Count (auto) 277 10^3/uL (140-450); Red Blood Cells 4.16 10^6/uL (4.5-5.90); Red Cell Distribution Width 14.5 % (11.8-14.3); White Blood Cell 21.3 10^3/uL (4.4-10.8)
[2024-07-12] MEDS: AZITHROMYCIN 500MG/ 250ML 250 ML IV ONE (10:45)
[2024-07-12 11:10] LABS: Alanine Aminotransferase 14 U/L (7-40); Albumin 3.3 g/dL (3.2-4.8); Alkaline Phosphatase 109 U/L (46-116); Anion Gap 11 (5-15); Aspartate Aminotransferase 26 U/L (13-40); BUN/Creatinine Ratio 14.3 (10.0-20.0); Blood Urea Nitrogen 10 mg/dL (9-23); Calcium 8.9 mg/dL (8.7-10.4); Glucose 104 mg/dL (74-106); Magnesium 1.8 mg/dL (1.6-2.6); Potassium 4.3 mmol/L (3.5-5.1); Sodium 138 mmol/L (136-145)
[2024-07-12] MEDS: guaiFENesin 200 MG/10 ML UD PO ONE (11:12)
[2024-07-12 11:15] LABS: Bilirubin, Total 0.2 mg/dL (0.2-1.0); Carbon Dioxide 19 mmol/L (20-31); Chloride 108 mmol/L (98-107); Total Protein 5.5 g/dL (5.7-8.2)
--- NOTE | 2024-07-12 11:25 | DVHPNRES ---
Progress Note Date Seen: Jul 12, 2024 Resident Creating Document: FAB MELGAR RESIDENT Medical Necessity Reason Pt with a Central, PICC or Fol: No Subjective Review of Systems Patient is 34 years old male with polysubstance abuse came with a complaint of shortness of breaths for last 2 days. As per patient patient has been having productive cough with greenish yellowish phlegm and intermittent fever for last 2 days. Patient also reported feeling short of breath for the same duration. Patient reported any sick contact. Patient denied any dysuria, constipation or diarrhea, acute joint pain or swelling, dysarthria or change in vision. Initial lab workup revealed leukocytosis with WBC 16.1, mild hyponatremia with sodium 130 3> 129, lactic acidosis with lactic acid 5.6, hypomagnesemia with a magnesium 1.2, bilirubin 1.3, mildly elevated BNP 258, UDS positive for amphetamine and cannabinoids. Urinalysis negative for UTI. Chest x-ray - Possible right infrahilar left lower lobe airspace disease. This could also be due to overlying chest soft tissues. Echo 2D revealed-Ejection fraction is estimated at 50-55%. PA systolic pressure is estimated at 20-25 mm Hg. PMH-nonsignificant PSH- none Allergy- NKDA Personal History/ Social History- alcoholic, smoker, uses polysubstance like cannabinoids and amphetamine Patient was seen today at the bedside. Gastrointestinal- denies any rectal bleeding, nausea or vomiting Musculoskeletal-denies acute joint swelling or tenderness or redness Neurological- denies acute dysarthria, dysphagia, change in vision Psychiatry- denies depression or SI or HI Skin- denies acute rash or purpura Patient was seen today for clinical evaluation. Labs and chart reviewed. Reported feeling better today. Patient breathing well in room air. Patient still with leukocytosis but persistent level. Ordered azithromycin 500 mg daily. Blood culture no growth so far. Urine Culture no growth so far. Objective vital signs Vital Sign Date Time Temp Pulse Resp B/P (MAP) Pulse Ox O2 Delivery O2 Flow Rate FiO2 07/12/24 09:00 98.0 78 16 117/70 (86) 99 98.0 07/12/24 07:25 Room Air* 0 21 Total Intake and Output 07/11/24 07/11/24 07/12/24 15:00 23:00 07:00 Intake Total 1975 ml 50 ml 800 ml Output Total 1000 ml 650 ml Balance 975 ml -600 ml 800 ml medications Current Medications Medications Dose Ordered Sig/Cj Route Start Time Stop Time Status Last Admin Dose Admin Temazepam 15 mg QHSP PRN PO 07/09/24 21:00 Ondansetron HCl 4 mg Q4HP PRN IV 07/09/24 21:00 07/11/24 11:30 4 MG Acetaminophen 650 mg Q6HP PRN PO 07/09/24 21:00 07/12/24 06:08 650 MG Dextrose/Sodium Chloride 1,000 ml @ 125 mls/hr Q8H IV 07/10/24 07:15 07/11/24 10:48 125 MLS/HR Morphine Sulfate 1 mg Q6HP PRN IV 07/10/24 08:30 07/11/24 11:30 1 MG Famotidine 20 mg Q12HR IV 07/10/24 22:00 07/12/24 09:56 20 MG Norepinephrine Bitartrate 250 ml @ 3.75 mls/hr Q24H IV 07/11/24 02:15 07/11/24 02:31 3.75 MLS/HR Meropenem 50 ml @ 17 mls/hr Q8HR IV 07/11/24 14:00 07/12/24 05:27 17 MLS/HR Vancomycin HCl 0 ml @ 0 mls/hr UD IV 07/11/24 11:45 Vancomycin HCl 250 ml @ 200 mls/hr Q12H IV 07/12/24 01:00 07/12/24 01:49 200 MLS/HR Albuterol 2.5 mg Q6HP PRN NEB 07/11/24 19:15 Ipratropium [place] 0.5 mg Q6HPRN PRN NEB 07/11/24 19:15 Guaifenesin 200 mg Q6HP PRN PO 07/12/24 10:30 Azithromycin 250 ml @ 125 mls/hr DAILY IV 07/13/24 10:00 Examination General examination- awake, alert, oriented, conversant HEENT- PEERLA, no acute nasal discharge Cardiovascular- S1-S2 audible, rate and rhythm regular, no murmur Respiratory-bilateral lung congestion + Gastrointestinal-nontender, bowel sound+. Nondistended Musculoskeletal-no acute joint swelling or tenderness or redness# Lower extremity- no leg edema Neurological- cranial nerves intact, no acute dysarthria or dysphagia Psychiatry- denies depression or SI or HI Skin- no acute rash or purpura laboratory and microbiology Laboratory Tests 07/12/24 07:13 Test 07/12/24 07:13 Range/Units Serum Glucose 104 74-106 mg/dL Microbiology Date/Time Source Procedure Growth Status 07/10/24 12:00 Blood Blood Culture - Preliminary NO GROWTH AFTER 24 HOURS OF INCUBATION. Resulted 07/09/24 19:15 Voided Urine Urine Culture - Preliminary Resulted Problem List/Assessment/Plan Problem List/Assessment/Plan #Sepsis likely due to pneumonia-patient was fever, tachycardia, leukocytosis, hypotension #Acute hypoxic respiratory failure likely due to pneumonia Gram-positive versus Gram-negative #Acute pneumonia Gram-positive versus Gram-negative #Acute chest pain likely due to pruritus, rule out acute coronary syndrome #Leukocytosis likely due to acute Pneumonia #Hyponatremia-asymptomatic #Lactic acidosis #Polysubstance abuse-UDS positive for cannabinoids and amphetamine-patient was counseled about the effect of polysubstance on health Blood culture no growth so far. Urine Culture no growth so far. Patient was counseled about the effect of alcoholism/smoking/polysubstance abuse on health Continue meropenem 1 g IV q.8h Vancomycin as per pharmacy Azithromycin 500 mg IV daily Nebulization as prescribed Monitor vitals Goals of care/advance care planning; FULL CODE; discussed with the patient >15 minutes PUD prophylaxis: Famotidine DVT prophylaxis: Plan discussed with Dr. Alvarez, nursing staff, patient Total time spent on patient evaluation, chart review, assessment and plan, discussion discussion >30 minutes Plan discussed with: Patient Plan discussed with: Patient, Other (RN) My Orders My Orders Orders - FAB MELGAR RESIDENT Procedure Category Date Status Time Vancomycin Per PHA 07/11/24 In Process Pharmacy 11:45 Vancomycin PHA 07/12/24 In Process 1.25gm/250ml 01:00 Vancomycin,Trough LAB 07/13/24 Verified 00:00 Vancomycin Per BALBIR 07/13/24 In Process Pharmacy Protoc 00:00 Basic Metabolic Panel LAB 07/13/24 Verified 04:00 Transfer Orders XFER 07/11/24 Transmitted 14:52 Communication Order ORDERS 07/11/24 Transmitted 14:52 Guaifenesin Plain PHA 07/12/24 In Process Liquid (Robitussin Paula 10:30 Azithromycin 500mg/ PHA 07/13/24 In Process 250ml (Zithromax 50 10:00 Azithromycin 500mg/ PHA 07/12/24 In Process 250ml (Zithromax 50 10:45 Date of Service: Jul 12, 2024 Billing Provider: JERRY DE LUNA MD Common Visit Codes: [id number] INP/OBS CARE(HIGH) FAB MELGAR RESIDENT Jul 12, 2024 11:25 JERRY DE LUNA MD Jul 14, 2024 21:01
[2024-07-12] MEDS: guaiFENesin 200 MG/10 ML UD PO PRN (16:20)
[2024-07-12] MEDS: ALBUTEROL SULF 2.5 MG/0.5ML(0.5%) NEB SOLN NEB PRN (20:35)
[2024-07-12] MEDS: IPRATROPIUM BROM 0.5 MG/2.5ML INH SOL NEB PRN (20:35)
[2024-07-13] VITALS (8 sets, daily range): BP systolic 110–130; BP diastolic 66–82; PULSE 76–109; RESP 18–30; TEMP 98.3–100.1; O2SAT 90–97
[2024-07-13 07:25] LABS: Anion Gap 8 (5-15); Calcium 8.9 mg/dL (8.7-10.4); Carbon Dioxide 25 mmol/L (20-31); Chloride 101 mmol/L (98-107)
[2024-07-13 07:32] LABS: BUN/Creatinine Ratio 11.1 (10.0-20.0); Glucose 97 mg/dL (74-106)
[2024-07-13 07:45] LABS: Blood Urea Nitrogen 7 mg/dL (9-23); Potassium 3.3 mmol/L (3.5-5.1); Sodium 134 mmol/L (136-145)
[2024-07-13] MEDS: VANCOMYCIN 1.25GM/250ML 250 ML IV SCH (09:43)
[2024-07-13] MEDS ORDERED: ALBUTEROL SULF 2.5 MG/0.5ML(0.5%) NEB SOLN NEB PRN ×2 (10:00→23:45)
[2024-07-13] MEDS: AZITHROMYCIN 500MG/ 250ML 250 ML IV SCH (10:00)
[2024-07-13] MEDS ORDERED: LORazepam 2MG/ML-1ML VIAL IV PRN (11:15)
[2024-07-13 13:55] LABS: Basophils # (auto) 0.1 10 ^3/uL (0-0.2); Basophils % (auto) 0.7 % (0.0-2.0); Eosinophils # (auto) 0.1 10 ^3/uL (0-0.8); Eosinophils % (auto) 0.9 % (0.0-7.0); Hematocrit 41.8 % (41.0-53.0); Hemoglobin 14.3 g/dL (13.5-17.5); Lymphocytes # (auto) 0.3 10 ^3/uL (0.4-5.4); Lymphocytes % (auto) 3.6 % (10.0-50.0); Mean Corpuscular Hemoglobin 29.4 pg (28.0-32.0); Mean Corpuscular Hgb Conc. 34.1 g/dL (32.0-36.0); Mean Corpuscular Volume 86.3 fL (80.0-100.0); Monocytes # (auto) 0.9 10 ^3/uL (0-1.3); Monocytes % (auto) 9.3 % (0.0-12.0); Neutrophils # (auto) 8.2 10 ^3/uL (1.6-8.6); Neutrophils % (auto) 85.5 % (37.0-80.0); Nucleated Red Blood Cells % 0.1 %; Platelet Count (auto) 295 10^3/uL (140-450); Red Blood Cells 4.85 10^6/uL (4.5-5.90); White Blood Cell 9.6 10^3/uL (4.4-10.8)
[2024-07-13] MEDS: FLUCONAZOLE 100 MG TAB PO ONE (15:15)
--- NOTE | 2024-07-13 15:26 | DVHPNRES ---
Progress Note Date Seen: Jul 13, 2024 Resident Creating Document: AURA ALICEA RESIDENT Medical Necessity Reason Pt with a Central, PICC or Fol: No Subjective Review of Systems Patient is 34 years old male with polysubstance abuse came with a complaint of shortness of breaths for last 2 days. As per patient patient has been having productive cough with greenish yellowish phlegm and intermittent fever for last 2 days. Patient also reported feeling short of breath for the same duration. Patient reported any sick contact. Patient denied any dysuria, constipation or diarrhea, acute joint pain or swelling, dysarthria or change in vision. Initial lab workup revealed leukocytosis with WBC 16.1, mild hyponatremia with sodium 130 3> 129, lactic acidosis with lactic acid 5.6, hypomagnesemia with a magnesium 1.2, bilirubin 1.3, mildly elevated BNP 258, UDS positive for amphetamine and cannabinoids. Urinalysis negative for UTI. Chest x-ray - Possible right infrahilar left lower lobe airspace disease. This could also be due to overlying chest soft tissues. Echo 2D revealed-Ejection fraction is estimated at 50-55%. PA systolic pressure is estimated at 20-25 mm Hg. PMH-nonsignificant PSH- none Allergy- NKDA Patient seen examined at bedside, patient is having fever temperature was 100 F, blood culture shows no growth, ordered repeat blood culture, HIV test, and add Diflucan. Objective vital signs Vital Sign Date Time Temp Pulse Resp B/P (MAP) Pulse Ox O2 Delivery O2 Flow Rate FiO2 07/13/24 12:49 99.9 92 23 126/81 (96) 95 99.9 07/13/24 04:19 Room Air 07/13/24 04:19 0 21 Total Intake and Output 07/12/24 07/12/24 07/13/24 15:00 23:00 07:00 Intake Total 660 ml 800 ml Balance 660 ml 800 ml medications Current Medications Medications Dose Ordered Sig/Cj Route Start Time Stop Time Status Last Admin Dose Admin Temazepam 15 mg QHSP PRN PO 07/09/24 21:00 Ondansetron HCl 4 mg Q4HP PRN IV 07/09/24 21:00 07/11/24 11:30 4 MG Acetaminophen 650 mg Q6HP PRN PO 07/09/24 21:00 07/12/24 16:25 650 MG Morphine Sulfate 1 mg Q6HP PRN IV 07/10/24 08:30 07/11/24 11:30 1 MG Famotidine 20 mg Q12HR IV 07/10/24 22:00 07/13/24 09:43 20 MG Meropenem 50 ml @ 17 mls/hr Q8HR IV 07/11/24 14:00 07/13/24 13:18 17 MLS/HR Vancomycin HCl 0 ml @ 0 mls/hr UD IV 07/11/24 11:45 Guaifenesin 200 mg Q6HP PRN PO 07/12/24 10:30 07/13/24 10:07 200 MG Azithromycin 250 ml @ 125 mls/hr DAILY IV 07/13/24 10:00 07/13/24 10:00 125 MLS/HR Vancomycin HCl 250 ml @ 200 mls/hr Q8H IV 07/13/24 10:00 07/13/24 09:43 200 MLS/HR Albuterol 2.5 mg Q6HPRN PRN NEB 07/13/24 10:00 Fluticasone Propionate 50 mcg Q12HR EACHNOSTRI 07/13/24 22:00 Lorazepam 0.5 mg Q8HP PRN IV 07/13/24 11:15 Fluconazole 200 mg DAILY PO 07/14/24 10:00 UNV Examination General examination- awake, alert, oriented, conversant HEENT- PEERLA, no acute nasal discharge Cardiovascular- S1-S2 audible, rate and rhythm regular, no murmur Respiratory-bilateral lung congestion + Gastrointestinal-nontender, bowel sound+. Nondistended Musculoskeletal-no acute joint swelling or tenderness or redness# Lower extremity- no leg edema Neurological- cranial nerves intact, no acute dysarthria or dysphagia Psychiatry- denies depression or SI or HI Skin- no acute rash or purpura laboratory and microbiology Laboratory Tests 07/13/24 13:27 07/13/24 06:26 Test 07/13/24 06:26 Range/Units Serum Glucose 97 74-106 mg/dL Microbiology Date/Time Source Procedure Growth Status 07/10/24 12:00 Blood Blood Culture - Preliminary NO GROWTH AFTER 72 HOURS OF INCUBATION. Resulted 07/09/24 19:15 Voided Urine Urine Culture - Final Complete Problem List/Assessment/Plan Problem List/Assessment/Plan #Sepsis likely due to pneumonia-patient was fever, tachycardia, leukocytosis, hypotension #Acute hypoxic respiratory failure likely due to pneumonia Gram-positive versus Gram-negative #Acute pneumonia Gram-positive versus Gram-negative #Acute chest pain likely due to pruritus, rule out acute coronary syndrome #Leukocytosis likely due to acute Pneumonia #Hyponatremia-asymptomatic #Lactic acidosis #Polysubstance abuse-UDS positive for cannabinoids and amphetamine-patient was counseled about the effect of polysubstance on health Blood culture no growth so far. Urine Culture no growth so far. Patient was counseled about the effect of alcoholism/smoking/polysubstance abuse on health Continue meropenem 1 g IV q.8h Vancomycin as per pharmacy Azithromycin 500 mg IV daily Nebulization as prescribed Monitor vitals ordered repeat blood culture, HIV test, and add Diflucan. Goals of care/advance care planning; FULL CODE; discussed with the patient >15 minutes Plan discussed with Dr. Yu Plan discussed with: Patient My Orders My Orders Orders - AURA ALICEA Procedure Category Date Status Time Albuterol Medneb PHA 07/13/24 In Process (Ventolin Medneb) 10:00 Fluticasone Nasal PHA 07/13/24 In Process [place] (Flonase Hallock) 22:00 Lorazepam 2mg/Ml Inj PHA 07/13/24 In Process (Ativan Inj) 11:15 Hiv 1&2 Antibody LAB 07/13/24 Logged 15:15 Complete Blood Count LAB 07/14/24 Verified 04:00 Basic Metabolic Panel LAB 07/14/24 Verified 04:00 Fluconazole Tablet PHA 07/14/24 Logged (Diflucan Tablet) 10:00 Fluconazole Tablet PHA 07/13/24 Logged (Diflucan Tablet) 15:15 Potassium Effervesent PHA 07/13/24 Logged Tab (Klor-Con/Ef) 15:30 Blood Culture CORNEL 07/13/24 Transmitted 15:23 Date of Service: Jul 13, 2024 Billing Provider: JERRY DE LUNA MD Common Visit Codes: [id number] INP/OBS CARE(HIGH) AURA ALICEA Jul 13, 2024 15:26 JERRY DE LUNA MD Jul 14, 2024 21:31
[2024-07-13] MEDS: POTASSIUM EFFERVESENT TAB 25 MEQ PO ONE (15:30)
[2024-07-13] MEDS: FLUTICASONE PROP NASAL SPR 0.05 % (50MCG) 16GM EACHNOSTRI SCH (21:11)
[2024-07-14] VITALS (12 sets, daily range): BP systolic 109–127; BP diastolic 63–72; PULSE 78–97; RESP 18–21; TEMP 97.6–99.2; O2SAT 91–96
[2024-07-14] MEDS: ALBUTEROL SULF 2.5 MG/0.5ML(0.5%) NEB SOLN ONE
[2024-07-14 07:02] LABS: Hematocrit 41.2 % (41.0-53.0); Hemoglobin 14.2 g/dL (13.5-17.5); Mean Corpuscular Hemoglobin 29.7 pg (28.0-32.0); Mean Corpuscular Hgb Conc. 34.6 g/dL (32.0-36.0); Mean Corpuscular Volume 85.9 fL (80.0-100.0); Platelet Count (auto) 311 10^3/uL (140-450); Red Blood Cells 4.79 10^6/uL (4.5-5.90); White Blood Cell 8.4 10^3/uL (4.4-10.8)
[2024-07-14 07:22] LABS: Anion Gap 6 (5-15); Carbon Dioxide 26 mmol/L (20-31); Chloride 104 mmol/L (98-107); Potassium 3.9 mmol/L (3.5-5.1); Sodium 136 mmol/L (136-145)
[2024-07-14 07:24] LABS: Calcium 8.9 mg/dL (8.7-10.4)
[2024-07-14 07:28] LABS: BUN/Creatinine Ratio 16.9 (10.0-20.0); Blood Urea Nitrogen 12 mg/dL (9-23); Glucose 88 mg/dL (74-106)
[2024-07-14 07:31] LABS: Basophils % (manual) 0 (0.0-2.0); Blast Cells 0; Eosinophils % (manual) 0 (0-7); Metamyelocytes % 0; Promyelocytes % 0; Reactive Lymphocytes 0
--- NOTE | 2024-07-14 07:40 | ECG ---
Test Date: 2024-07-10 Test Time: 08:39:56 Pat Name: EDI ROTH Department: [facility] ED Room: 0285T Gender: M Steel Tier: [id number] : 1990 Requested By: FAB MELGAR Order Number: [id number] Reading MD: Measurements Intervals [place] Rate: 91 P: 57 IA: 149 QRS: 46 QRSD: 89 T: 49 QT: 338 QTc: 416 Interpretive Statements Sinus rhythm Consider left ventricular hypertrophy ST elev, probable normal early repol pattern Please click the below link to view image of tracing.
[2024-07-14 08:27] LABS: Band Neutrophils % (manual) 2; Lymphocytes % (manual) 7 (10.0-50.0); Monocytes % (manual) 9 (0-12); Myelocytes % 2
[2024-07-14 08:28] LABS: Large Platelets FEW; Platelet Estimate Adequa
[2024-07-14] MEDS: FLUCONAZOLE 100 MG TAB PO SCH (08:57)
--- NOTE | 2024-07-14 11:01 | ECG ---
[facility] Test Date: 2024-07-10 Test Time: 08:42:08 Pat Name: EDI ROTH Department: [facility] ED Room: 0285T Gender: M [employer] Winder: [id number] [phone] [id number] Requested By: LUCY MOORE Order Number: [id number] Reading MD: Measurements Intervals [place] Rate: 92 P: 64 [place]: 152 QRS: 49 QRSD: 88 T: 51 QT: 344 QTc: 426 Interpretive Statements Sinus rhythm Consider left ventricular hypertrophy ST elev, probable normal early repol pattern Please click the below link to view image of tracing.
[2024-07-14] MEDS ORDERED: ALBUTEROL SULF 2.5 MG/0.5ML(0.5%) NEB SOLN NEB PRN (14:00)
--- NOTE | 2024-07-14 14:45 | DVHPNRES ---
Progress Note Date Seen: Jul 14, 2024 Resident Creating Document: LÓPEZ ALBA MD Medical Necessity Reason Pt with a Central, PICC or Fol: No Medical Necessity Reason Sepsis Acute respiratory failure Subjective Review of Systems Patient is 34 years old male with polysubstance abuse came in on 07/09/2024 with a complaint of shortness of breaths for last 2 days. As per patient, he has been having productive cough with greenish yellowish phlegm and intermittent fever for last 2 days. Patient also reported feeling short of breath for the same duration. Patient denied having sick contacts. He denied any dysuria, constipation or diarrhea, acute joint pain or swelling, dysarthria or change in vision. Initial lab workup revealed leukocytosis with WBC 16.1, mild hyponatremia with sodium 133> 129, lactic acid 5.6, magnesium 1.2, bilirubin 1.3, mildly elevated BNP 258, UDS positive for amphetamine and cannabinoids. Urinalysis negative for UTI. Chest x-ray - Possible right infrahilar left lower lobe airspace disease. Echo 2D revealed-Ejection fraction is estimated at 50- 55%. PA systolic pressure is estimated at 20-25 mm Hg. PN 07/14/2024: Patient seen examined at bedside by me. He is was having lunch at the time of my visit. Patient complained of shortness of breaths and mild cough. His vitals today were grossly unremarkable. Temperature, pulse, respiratory are within normal limits. He is currently on 3L of oxygen but he still complains of some shortness of breath. He is breathing treatment her q6hrs. Labs today are within normal limits Objective vital signs Vital Sign Date Time Temp Pulse Resp B/P (MAP) Pulse Ox O2 Delivery O2 Flow Rate FiO2 07/14/24 10:00 91 Nasal Cannula* 2 28 07/14/24 09:00 98.6 80 20 114/72 (86) 98.6 Total Intake and Output 07/13/24 07/13/24 07/14/24 15:00 23:00 07:00 Intake Total 550 ml 854 ml Output Total 1550 ml Balance 550 ml -696 ml medications Current Medications Medications Dose Ordered Sig/Cj Route Start Time Stop Time Status Last Admin Dose Admin Temazepam 15 mg QHSP PRN PO 07/09/24 21:00 Ondansetron HCl 4 mg Q4HP PRN IV 07/09/24 21:00 07/11/24 11:30 4 MG Acetaminophen 650 mg Q6HP PRN PO 07/09/24 21:00 07/13/24 16:26 650 MG Morphine Sulfate 1 mg Q6HP PRN IV 07/10/24 08:30 07/14/24 06:27 1 MG Famotidine 20 mg Q12HR IV 07/10/24 22:00 07/14/24 08:56 20 MG Meropenem 50 ml @ 17 mls/hr Q8HR IV 07/11/24 14:00 07/14/24 13:18 17 MLS/HR Vancomycin HCl 0 ml @ 0 mls/hr UD IV 07/11/24 11:45 Cancel Guaifenesin 200 mg Q6HP PRN PO 07/12/24 10:30 07/14/24 06:24 200 MG Fluticasone Propionate 50 mcg Q12HR EACHNOSTRI 07/13/24 22:00 07/14/24 08:57 50 MCG Lorazepam 0.5 mg Q8HP PRN IV 07/13/24 11:15 Fluconazole 200 mg DAILY PO 07/14/24 10:00 07/14/24 08:57 200 MG Albuterol 2.5 mg Q6HPRN PRN NEB 07/13/24 23:45 Examination General Appearance: Alert, Oriented X3, Cooperative, No acute distress HEENT: Atraumatic, PERRLA, EOMI, Mucous membrane moist/pink Respiratory: very mild crackle, but mainly clear. Normal air movement Cardiovascular: Regular rate, Normal S1, Normal S2, No murmurs, no chest wall tenderness Abdominal: NO distention, no tenderness, bowel sounds present, no scars noted Extremities: No clubbing, No cyanosis, No edema, Normal pulses, No tenderness/swelling Skin: No rashes, No breakdown, No significant lesion Neuro: Normal gait, Normal speech, Strength at 5/5 X4 ext, Normal tone, Sensation intact, Cranial nerves 3-12 NL, Reflexes 2+ Psych/Mental Status: Mental status NL, Mood NL laboratory and microbiology Laboratory Tests 07/14/24 05:15 Test 07/14/24 05:15 Range/Units Serum Glucose 88 74-106 mg/dL Microbiology Date/Time Source Procedure Growth Status 07/10/24 12:00 Blood Blood Culture - Preliminary NO GROWTH AFTER 72 HOURS OF INCUBATION. Resulted 07/09/24 19:15 Voided Urine Urine Culture - Final Complete Problem List/Assessment/Plan Problem List/Assessment/Plan Assessment Sepsis likely due to pneumonia-patient was fever, tachycardia, leukocytosis, hypotension Acute hypoxic respiratory failure likely due to pneumonia Gram-positive versus Gram-negative Acute pneumonia Gram-positive versus Gram-negative Acute chest pain likely due to pruritus, rule out acute coronary syndrome Leukocytosis likely due to acute Pneumonia Hyponatremia- improved Lactic acidosis Polysubstance abuse: UDS positive for cannabinoids and amphetamine- --> patient was counseled about the effect of polysubstance on health Blood culture: No growth so far. Urine Culture: No growth so far. HIV: Negative PLAN Continue Meropenem 1 g IV q.8h Continue fluconazole Vancomycin as per pharmacy-->Stop Azithromycin 500 mg IV daily--> Stop Breathing treatment ( Ipratropium/albuterol q6hr prn) Monitor vitals Code status: FULL Goal of care discussed for more than 25 minute Case and plan discussed with Dr. Locke Plan discussed with: Patient Dietary Evaluation Review Comments: Avoid drugs, monitor PO intakes to meet 75% of his needs Expected Outcomes/Goals: free from drug, improved nutrition health Date of Service: Jul 14, 2024 Billing Provider: MEGAN LOCKE MD Common Visit Codes: [id number] INP/OBS CARE(HIGH) LÓPEZ DE OLIVEIRA RESIDENT Jul 14, 2024 14:45 MEGAN LOCKE MD Jul 15, 2024 07:20
[2024-07-14] MEDS ORDERED: IPRATROPIUM BROM 0.5 MG/2.5ML INH SOL NEB SCH (18:00)
[2024-07-14] MEDS: IPRATROPIUM BROM 0.5 MG/2.5ML INH SOL NEB SCH (18:00)
[2024-07-15] VITALS (13 sets, daily range): BP systolic 99–115; BP diastolic 50–71; PULSE 70–92; RESP 16–20; TEMP 97.4–98.7; O2SAT 88–100
[2024-07-15 06:17] LABS: Chloride 104 mmol/L (98-107); Potassium 3.9 mmol/L (3.5-5.1); Sodium 137 mmol/L (136-145)
[2024-07-15 06:18] LABS: Anion Gap 6 (5-15); Carbon Dioxide 27 mmol/L (20-31)
[2024-07-15 06:24] LABS: BUN/Creatinine Ratio 15.3 (10.0-20.0); Blood Urea Nitrogen 11 mg/dL (9-23); Glucose 101 mg/dL (74-106)
[2024-07-15] MEDS: ALBUTEROL SULF 2.5 MG/0.5ML(0.5%) NEB SOLN NEB SCH (06:53)
[2024-07-15] MEDS: FUROSEMIDE 20 MG/2 ML VIAL IV ONE (09:37)
[2024-07-15] MEDS ORDERED: IOHEXOL 350 MG/ML 100ML IJ ONE (13:21)
--- NOTE | 2024-07-15 13:41 | DVH ---
CHEST RADIOGRAPH Indication: increased o2 requirements Technique: Single frontal view of the chest was obtained Comparison: XY CHEST PORTABLE on DOS: 07/09/24 FINDINGS: Lines and Tubes: None Lungs: No focal consolidation. Pleura: No effusion. No pneumothorax. Cardiomediastinal contours: Unremarkable Bones: No acute osseous abnormality. IMPRESSION: No acute cardiopulmonary disease.
--- NOTE | 2024-07-15 14:31 | DVH ---
Procedure: CT CHEST WITH CONTRAST Reason for study/Clinical History: 34 years old, Male; nonresolving pneumonia. Comparison Study: None available at time of dictation. Exam Date: 07/15/2024 01:57 PM Radiation Dose Information: CT Dose: CTDI volume is 9 mGy. Dose-length product is 391.65 mGy*cm Contrast: Type of contrast: Omni 300 Contrast inject: 100 TECHNIQUE: After the uneventful administration of intravenous contrast intravenously, CT imaging was performed through the chest. Coronal and sagittal reformations were performed by the technologist. FINDINGS: Lower Neck: Visualized portions of the thyroid gland are unremarkable. Aorta and Vasculature: Normal caliber of thoracic aorta. Lymph Nodes: Right hilar lymphadenopathy. Mediastinum: Heart size is normal. There is no pericardial effusion. The esophagus is unremarkable. Lungs: Tree-in-bud nodularity in both lungs right greater than left. Bibasilar consolidation left gre ater than right. Small bilateral pleural effusions [id number]. Musculoskeletal: No acute osseous abnormality. Upper abdomen: Limited portions of the upper abdomen are unremarkable. IMPRESSION: 1. Tree-in-bud nodularity throughout both lungs. Bibasilar consolidation left greater than right. S mall bilateral pleural effusions. Right hilar lymphadenopathy. Findings are consistent with an infect ious/inflammatory process. Consider atypical infections including fungal disease. Clinical correlati on and continued follow-up is recommended. 2. All CT scans at this medical facility are performed using dose modulation techniques as appropriat e to a performed exam including the following: Automated exposure control was utilized; Adjustment of the MA And/or KV according to patient size; And use of iterative reconstruction technique. HS:Y
[2024-07-15 16:15] LABS: Base Excess 1.9 mmol/L (-2.0-3.0)
--- NOTE | 2024-07-15 16:46 | DVHPNRES ---
Progress Note Date Seen: Jul 15, 2024 Resident Creating Document: STAN VASQUEZ Medical Necessity Reason Pt with a Central, PICC or Fol: No Medical Necessity Reason Cough heaviness in the chest Subjective Review of Systems Patient is 34 years old male with polysubstance abuse came in on 07/09/2024 with a complaint of shortness of breaths for last 2 days. As per patient, he has been having productive cough with greenish yellowish phlegm and intermittent fever for last 2 days. Patient also reported feeling short of breath for the same duration. Patient denied having sick contacts. He denied any dysuria, constipation or diarrhea, acute joint pain or swelling, dysarthria or change in vision. Initial lab workup revealed leukocytosis with WBC 16.1, mild hyponatremia with sodium 133> 129, lactic acid 5.6, magnesium 1.2, bilirubin 1.3, mildly elevated BNP 258, UDS positive for amphetamine and cannabinoids. Urinalysis negative for UTI. Chest x-ray - Possible right infrahilar left lower lobe airspace disease. Echo 2D revealed-Ejection fraction is estimated at 50- 55%. PA systolic pressure is estimated at 20-25 mm Hg. PN 07/14/2024: Patient seen examined at bedside by me. He is was having lunch at the time of my visit. Patient complained of shortness of breaths and mild cough. His vitals today were grossly unremarkable. Temperature, pulse, respiratory are within normal limits. He is currently on 3L of oxygen but he still complains of some shortness of breath. He is breathing treatment her q6hrs. PN07/15/2024: Patient is seen and examined today. He is still coughing and complained of shortness of breaths feeling heaviness in his chest with some tightness. He did say he is getting better compared to his initial visit. He denies any fever, but he has shortness of breath when communicating and also coughing a lot even when I was present. Patient also mentioned to me today for the 1st time that he has been smoking cigarettes about a pack a day for the past 20 years. Pulmonology was consulted to assist in the management of this patient. CT of the chest showed: 1. Tree-in-bud nodularity throughout both lungs. Bibasilar consolidation left greater than right. Small bilateral pleural effusions. Right hilar lymphadenopathy. Findings are consistent with an infectious/inflammatory process. Consider atypical infections including fungal disease. Is currently on meropenem and fluconazole pain as a breathing treatment every 6 hours Objective vital signs Vital Sign Date Time Temp Pulse Resp B/P (MAP) Pulse Ox O2 Delivery O2 Flow Rate FiO2 07/15/24 13:00 98.6 88 16 100/59 (73) 90 98.6 07/15/24 10:00 Nasal Cannula* 3 32 Total Intake and Output 07/14/24 07/14/24 07/15/24 15:00 23:00 07:00 Intake Total 550 ml 1650 ml 650 ml Output Total 1300 ml 700 ml Balance 550 ml 350 ml -50 ml medications Current Medications Medications Dose Ordered Sig/Cj Route Start Time Stop Time Status Last Admin Dose Admin Temazepam 15 mg QHSP PRN PO 07/09/24 21:00 Ondansetron HCl 4 mg Q4HP PRN IV 07/09/24 21:00 07/11/24 11:30 4 MG Acetaminophen 650 mg Q6HP PRN PO 07/09/24 21:00 07/13/24 16:26 650 MG Morphine Sulfate 1 mg Q6HP PRN IV 07/10/24 08:30 07/14/24 23:35 1 MG Famotidine 20 mg Q12HR IV 07/10/24 22:00 07/15/24 09:37 20 MG Meropenem 50 ml @ 17 mls/hr Q8HR IV 07/11/24 14:00 07/15/24 13:25 17 MLS/HR Vancomycin HCl 0 ml @ 0 mls/hr UD IV 07/11/24 11:45 Cancel Guaifenesin 200 mg Q6HP PRN PO 07/12/24 10:30 07/14/24 06:24 200 MG Fluticasone Propionate 50 mcg Q12HR EACHNOSTRI 07/13/24 22:00 07/15/24 09:37 50 MCG Lorazepam 0.5 mg Q8HP PRN IV 07/13/24 11:15 Fluconazole 200 mg DAILY PO 07/14/24 10:00 07/15/24 09:37 200 MG Albuterol 2.5 mg Q6HPRN PRN NEB 07/13/24 23:45 Albuterol 2.5 mg Q6HPRN NEB 07/14/24 15:00 Hold 07/15/24 06:53 2.5 MG Ipratropium [place] 0.5 mg Q6HPRN PRN NEB 07/15/24 12:00 Examination General Appearance: Alert, Oriented X3, Cooperative, mild acute distress, on 3- 4 L of oxygen, malaise HEENT: Atraumatic, PERRLA, EOMI, Mucous membrane moist/pink Respiratory: crackles LLL> RLL. Normal air movement Cardiovascular: Regular rate, Normal S1, Normal S2, No murmurs, no chest wall tenderness Abdominal: NO distention, no tenderness, bowel sounds present, no scars noted Extremities: No clubbing, No cyanosis, No edema, Normal pulses, No tenderness/swelling Skin: No rashes, No breakdown, No significant lesion Neuro: Normal gait, Normal speech, Strength at 5/5 X4 ext, Normal tone, Sensation intact, Cranial nerves 3-12 NL, Reflexes 2+ Psych/Mental Status: Mental status NL, Mood laboratory and microbiology Laboratory Tests 07/15/24 05:18 07/14/24 05:15 Test 07/15/24 05:18 Range/Units Serum Glucose 101 74-106 mg/dL Microbiology Date/Time Source Procedure Growth Status 07/13/24 18:16 Blood Blood Culture - Preliminary NO GROWTH AFTER 24 HOURS OF INCUBATION. Resulted 07/09/24 19:15 Voided Urine Urine Culture - Final Complete Problem List/Assessment/Plan Problem List/Assessment/Plan Assessment Sepsis likely due to pneumonia-patient was fever, tachycardia, leukocytosis, hypotension Acute hypoxic respiratory failure likely due to pneumonia Gram-positive versus Gram-negative Acute pneumonia Gram-positive versus Gram-negative Acute chest pain likely due to pruritus, rule out acute coronary syndrome Leukocytosis likely due to acute Pneumonia Hyponatremia- improved Lactic acidosis Polysubstance abuse: UDS positive for cannabinoids and amphetamine- --> patient was counseled about the effect of polysubstance on health Possible fungal pneumonia 20 pack years Blood culture: No growth so far. Urine Culture: No growth so far. HIV: Negative PLAN Continue Meropenem 1 g IV q.8h Continue fluconazole Vancomycin as per pharmacy-->Stop Azithromycin 500 mg IV daily--> Stop Breathing treatment ( Ipratropium/albuterol q6hr prn) Monitor vitals Pulmonology consult appreciated Code status: FULL Goal of care discussed for more than 25 minute Case and plan discussed with Dr. Locke Plan discussed with: Patient My Orders My Orders Orders - LÓPEZ DE OLIVEIRA Procedure Category Date Status Time Ipratropium Medneb PHA 07/15/24 In Process (Atrovent Medneb) 12:00 *Consult CONS 07/15/24 Transmitted / 13:07 Dietary Evaluation Review Comments: Avoid drugs, monitor PO intakes to meet 75% of his needs Expected Outcomes/Goals: free from drug, improved nutrition health Date of Service: Jul 15, 2024 Billing Provider: MEGAN LOCKE MD Common Visit Codes: [id number] INP/OBS CARE(HIGH) LÓPEZ DE OLIVEIRA RESIDENT Jul 15, 2024 16:46 MEGNA LOCKE MD Jul 15, 2024 20:39
[2024-07-15] MEDS: NICOTINE 14 MG/24HR TOPICAL PATCH TD ONE (17:25)
[2024-07-15] MEDS: IPRATROPIUM BROM 0.5 MG/2.5ML INH SOL NEB PRN (19:03)
--- NOTE | 2024-07-15 22:55 | DVHINCON2 ---
Date of service: Jul 15, 2024 Referring Physician Mulu Knowles MD Reason for Consultation Acute hypoxic respiratory failure, multifocal pneumonia, pleural effusion History of Present Illness A 34-year-old man with no significant past medical history other than substance abuse (marijuana, amphetamines) who presented to ED on 07/09/24 for evaluation of shortness of breath. Patient reported a 3-day history of worsening shortness of breath with associated productive cough with yellow/green phlegm and intermittent fever. Denied chest pain or palpitations or any other acute complaints. Patient was admitted for further care and pulmonary consultation is requested for evaluation and management of acute hypoxic respiratory failure, multifocal pneumonia, and pleural effusion. Review of Systems: 14-point review of systems negative unless otherwise noted above. Past Medical History: Substance abuse (marijuana, amphetamines) Past Surgical History: Denies Medications: Reviewed. Allergies: No known drug allergies. Family History: No family history of premature CAD. No family history of lung disorders. Social History: Nonsmoker. Occasional alcohol use. Drugs: Other (Amphetamine) Patient is homeless. Allergies: Coded Allergies: NO KNOWN ALLERGIES (Unverified , 07/09/24) PT CONFIRMED NO KNOWN ALLERGIES. Current Medications Current Medications Medications (Trade) Dose Ordered Sig/Cj Route PRN Reason Start Time Stop Time Status Last Admin Ipratropium [place] (Atrovent Medneb) 0.5 mg Q6HPRN PRN NEB BRONCHOSPASM 07/15/24 12:00 07/15/24 19:03 Nicotine (Nicoderm 14MG/ 24HR) 1 patch DAILY TD 07/16/24 10:00 Vital Signs Vital Signs Date Time Temp Pulse Resp B/P (MAP) Pulse Ox O2 Delivery O2 Flow Rate FiO2 07/15/24 22:19 94 18 106/59 07/15/24 21:00 97.4 94 97.4 07/15/24 10:00 Nasal Cannula* 3 32 Physical Exam Gen.: Patient lying in bed in no apparent distress. On supplemental oxygen. Head: Normocephalic, atraumatic. Eyes: EOMI/PERRLA. Ears: Normal hearing. Normal anatomy. Neck/trachea: Trachea midline, supple. Nose: Normal external anatomy. Mouth: Moist mucous membranes. Chest: Decreased air entry bilaterally. No wheezing or rhonchi. Cardiovascular: Positive S1, positive S2. Regular rate and rhythm. Abdomen: Positive bowel sounds in all 4 quadrants. Soft, non-tender, non- distended. : Deferred. Rectal: Deferred. Skin: Warm, dry. Intact. Extremities: 2+ radial pulses bilaterally. No lower extremity edema. Neuro: Awake, alert, oriented x3. No gross motor or sensory deficits. Cranial nerves II through XII intact. Gait not assessed. Labs/Diagnostic Data Labs Test 07/15/24 13:48 07/15/24 05:18 07/14/24 05:15 07/14/24 01:04 Range/Units Blood Gas Specimen Type Arterial Blood Gas Sample Site Right radial Blood Gas Patient Temperature 37.0 Arterial Blood Date Drawn [id number] Arterial Blood pH 7.475 H 7.350-7.450 Arterial Blood Partial Pressure CO2 34.8 L 35.0-48.0 mmHg Arterial Blood Partial Pressure O2 61.5 L 83.0-108.0 mmHg Arterial Blood HCO3 25.0 21.0-28.0 mmol/L Arterial Blood Oxygen Saturation 91.1 L 94.0-98.0 % Arterial Blood Base Excess 1.9 -2.0-3.0 mmol/L Arterial Blood Oxyhemoglobin 90.2 L 94.0-98.0 % Arterial Blood Carboxyhemoglobin 0.7 0.5-1.5 % Arterial Blood Methemoglobin 0.3 0.0-1.5 % Klaus Test Yes Blood Gas Total Hemoglobin 14.40 13.5-17.5 g/dL Blood Gas Modality Room air FiO2 % 21.0 Sodium Level 137 136-145 mmol/L Potassium Level 3.9 3.5-5.1 mmol/L Chloride Level 104 98-107 mmol/L Carbon Dioxide Level 27 20-31 mmol/L Anion Gap 6 5-15 Blood Urea Nitrogen 11 9-23 mg/dL Creatinine 0.72 0.700-1.30 mg/dL Glomerular Filtration Rate Calc 121 >90 mL/min BUN/Creatinine Ratio 15.3 10.0-20.0 Serum Glucose 101 74-106 mg/dL Calcium Level 9.0 8.7-10.4 mg/dL White Blood Count 8.4 4.4-10.8 10^3/uL Red Blood Count 4.79 4.5-5.90 10^6/uL Hemoglobin 14.2 13.5-17.5 g/dL Hematocrit 41.2 41.0-53.0 % Mean Corpuscular Volume 85.9 80.0-100.0 fL Mean Corpuscular Hemoglobin 29.7 28.0-32.0 pg Mean Corpuscular Hemoglobin Concent 34.6 32.0-36.0 g/dL Red Cell Distribution Width 14.0 11.8-14.3 % Platelet Count 311 140-450 10^3/uL Mean Platelet Volume 8.1 6.9-10.8 fL Neutrophils (%) (Auto) 37.0-80.0 % Lymphocytes (%) (Auto) 10.0-50.0 % Monocytes (%) (Auto) 0.0-12.0 % Basophils (%) (Auto) 0.0-2.0 % Neutrophils # (Auto) 1.6-8.6 10 ^3/uL Lymphocytes # (Auto) 0.4-5.4 10 ^3/uL Monocytes # (Auto) 0-1.3 10 ^3/uL Differential Total Cells Counted 100.0 100 Neutrophils % (Manual) 80 37.0-80.0 Band Neutrophils % (Manual) 2 Lymphocytes % (Manual) 7 L 10.0-50.0 Monocytes % (Manual) 9 0-12 Eosinophils % (Manual) 0 0-7 Basophils % (Manual) 0 0.0-2.0 Metamyelocytes % (manual) 0 Myelocytes % (Manual) 2 Promyelocytes % (Manual) 0 Blast Cells % (Manual) 0 Reactive Lymphocytes 0 Platelet Estimate [place] Large Platelets Few Vancomycin Level Trough 10.6 H 5-10 ug/mL Test 07/13/24 13:27 07/12/24 07:13 07/11/24 08:28 07/10/24 11:39 Range/Units Eosinophils (%) (Auto) 0.9 0.0-7.0 % Eosinophils # (Auto) 0.1 0-0.8 10 ^3/uL Basophils # (Auto) 0.1 0-0.2 10 ^3/uL Nucleated Red Blood Cells 0.1 % HIV (1&2) Antibody Negative Negative Magnesium Level 1.8 1.6-2.6 mg/dL Total Bilirubin 0.2 0.2-1.0 mg/dL Aspartate Amino Transferase (AST) 26 13-40 U/L Alanine Aminotransferase (ALT) 14 7-40 U/L Alkaline Phosphatase 109 46-116 U/L Total Protein 5.5 L 5.7-8.2 g/dL Albumin 3.3 3.2-4.8 g/dL Lactic Acid Level 1.6 0.4-2.0 mmol/L POC Glucose 159 H 70-106 mg/dl Test 07/10/24 08:38 07/10/24 05:30 07/10/24 04:20 07/09/24 22:44 Range/Units D-Dimer, Quantitative 0.93 H 0.0-0.49 mg/L FEU Influenza Type A Antigen Negative Negative Influenza Type B Antigen Negative Negative SARS-CoV-2 Antigen (Rapid) Negative NEGATIVE Red Blood Cell Morphology Normal Hemoglobin A1c 5.7 <5.7 % A1C Thyroid Stimulating Hormone (TSH) 4.53 0.55-4.78 uIU/mL Troponin I High Sensitivity < 3 L </=54 ng/L Test 07/09/24 19:25 07/09/24 19:15 Range/Units B-Type Natriuretic Peptide 258.70 0-100 pg/mL Plasma/Serum Blood Alcohol < 3.0 <10 mg/dL Urine Color Light-orange Yellow Urine Clarity Turbid H Clear Urine pH 5.5 5.0-9.0 Urine Specific [place] 1.019 1.001-1.035 Urine Protein 1+ H Negative Urine Ketones Negative Negative Urine Blood Negative Negative /uL Urine Nitrite Negative Negative Urine Bilirubin Negative Negative Urine Urobilinogen Normal Negative mg/dL Urine Leukocyte Esterase Negative Negative /uL Urine RBC 1 0 - 3 /hpf Urine WBC 7 0 - 3 /hpf Urine Squamous Epithelial Cells None seen <5 /hpf Urine Bacteria None seen None Seen /hpf Urine Mucus Few None Seen Urine Sperm Present None Seen /hpf Urine Glucose Normal Normal mg/dL Urine Opiates Screen Neg NEGATIVE Urine Fentanyl Screen Neg NEGATIVE Urine Barbiturates Screen Neg NEGATIVE Urine Phencyclidine Screen Neg NEGATIVE Urine Amphetamines Screen Pos NEGATIVE Urine Benzodiazepines Screen Neg NEGATIVE Urine Cocaine Screen Neg NEGATIVE Urine Cannabinoids Screen Pos NEGATIVE Microbiology Date/Time Source Procedure Growth Status 07/13/24 18:16 Blood Blood Culture - Preliminary NO GROWTH AFTER 48 HOURS OF INCUBATION. Resulted 07/09/24 19:15 Voided Urine Urine Culture - Final Complete Assessment Impression: Acute hypoxic respiratory failure Dependence on supplemental oxygen Multifocal pneumonia Marijuana use Substance abuse Pleural effusion Atelectasis Plan: Supplemental oxygen 3 LPM NC Titrate to keep O2 sats above 92%. Increased O2 requirements Taper O2 as tolerated. Pt desaturates with exertion ABG reviewed; notable for alkalemia CXR reviewed, demonstrates no acute abnormalities CT chest w/o contrast remarkable for tree-in-bud nodularity throughout both lungs. Bibasilar consolidation, left greater than right. Small bilateral pleural effusions. Right hilar lymphadenopathy.. Echo demonstrates EF of 50-55%. Start Diflucan course Continue bronchodilators. Continue antibiotics Incentive spirometry Pain control Avoid oversedation Diurese to euvolemia w/ Lasix Monitor renal function. Monitor electrolytes. Supplement as necessary. Monitor ins and outs. DVT prophylaxis. Prognosis: Poor given patient's multiple co-morbidities. Rest of plan per hospitalist and other consultants. Thank you, Dr. Knowles, for allowing me to participate in this patient's care. Further recommendations will depend on the patient's clinical course. Please do not hesitate to contact me if you have any questions or concerns. This medical document was created using an electronic medical record system with [employer] dictation system. Although these documentations are being carefully reviewed, there may still be some phonetic and typographical changes. The errors are purely typographical, due to imperfection on the software program, and do not reflect any compromise in the patient's medical care. Plan discussed with: Patient, Other (FLAKO Sprague/MD Knowles) FERNY PRESCOTT MD Jul 15, 2024 22:55
[2024-07-16] VITALS (11 sets, daily range): BP systolic 104–115; BP diastolic 59–77; PULSE 63–89; RESP 17–20; TEMP 97.5–98.2; O2SAT 91–100
[2024-07-16 07:44] LABS: Hematocrit 40.4 % (41.0-53.0); Hemoglobin 13.7 g/dL (13.5-17.5); Mean Corpuscular Hemoglobin 29.4 pg (28.0-32.0); Mean Corpuscular Hgb Conc. 33.8 g/dL (32.0-36.0); Mean Corpuscular Volume 87.1 fL (80.0-100.0); Platelet Count (auto) 369 10^3/uL (140-450); Red Blood Cells 4.64 10^6/uL (4.5-5.90); Red Cell Distribution Width 13.9 % (11.8-14.3); White Blood Cell 6.2 10^3/uL (4.4-10.8)
[2024-07-16 07:49] LABS: Band Neutrophils % (manual) 0; Basophils % (manual) 0 (0.0-2.0); Blast Cells 0; Eosinophils % (manual) 0 (0-7); Metamyelocytes % 0; Promyelocytes % 0; Reactive Lymphocytes 0
[2024-07-16 08:00] LABS: Albumin 3.7 g/dL (3.2-4.8); Alkaline Phosphatase 66 U/L (46-116); Anion Gap 5 (5-15); Aspartate Aminotransferase 39 U/L (13-40); BUN/Creatinine Ratio 17.6 (10.0-20.0); Blood Urea Nitrogen 12 mg/dL (9-23); Calcium 9.3 mg/dL (8.7-10.4); Carbon Dioxide 27 mmol/L (20-31); Chloride 105 mmol/L (98-107); Glucose 86 mg/dL (74-106); Sodium 137 mmol/L (136-145); Total Protein 6.3 g/dL (5.7-8.2)
[2024-07-16 08:02] LABS: Alanine Aminotransferase 48 U/L (7-40); Bilirubin, Total 0.2 mg/dL (0.2-1.0)
[2024-07-16] MEDS: NICOTINE 14 MG/24HR TOPICAL PATCH TD SCH (08:49)
[2024-07-16 09:24] LABS: Lymphocytes % (manual) 14 (10.0-50.0); Monocytes % (manual) 14 (0-12); Myelocytes % 2; Platelet Estimate Adequate
[2024-07-16] MEDS: FUROSEMIDE 20 MG/2 ML VIAL IV SCH (09:48)
--- NOTE | 2024-07-16 18:40 | DVHPNRES ---
Progress Note Date Seen: Jul 16, 2024 Resident Creating Document: LÓPEZ DE OLIVEIRA RESIDENT Medical Necessity Reason Pt with a Central, PICC or Fol: No Medical Necessity Reason atypical pneumonia Subjective Review of Systems Patient is 34 years old male with polysubstance abuse came in on 07/09/2024 with a complaint of shortness of breaths for last 2 days. As per patient, he has been having productive cough with greenish yellowish phlegm and intermittent fever for last 2 days. Patient also reported feeling short of breath for the same duration. Patient denied having sick contacts. He denied any dysuria, constipation or diarrhea, acute joint pain or swelling, dysarthria or change in vision. Initial lab workup revealed leukocytosis with WBC 16.1, mild hyponatremia with sodium 133> 129, lactic acid 5.6, magnesium 1.2, bilirubin 1.3, mildly elevated BNP 258, UDS positive for amphetamine and cannabinoids. Urinalysis negative for UTI. Chest x-ray - Possible right infrahilar left lower lobe airspace disease. Echo 2D revealed-Ejection fraction is estimated at 50- 55%. PA systolic pressure is estimated at 20-25 mm Hg. PN 07/14/2024: Patient seen examined at bedside by me. He is was having lunch at the time of my visit. Patient complained of shortness of breaths and mild cough. His vitals today were grossly unremarkable. Temperature, pulse, respiratory are within normal limits. He is currently on 3L of oxygen but he still complains of some shortness of breath. He is breathing treatment her q6hrs. PN07/15/2024: Patient is seen and examined today. He is still coughing and complained of shortness of breaths feeling heaviness in his chest with some tightness. He did say he is getting better compared to his initial visit. He denies any fever, but he has shortness of breath when communicating and also coughing a lot even when I was present. Patient also mentioned to me today for the 1st time that he has been smoking cigarettes about a pack a day for the past 20 years. Pulmonology was consulted to assist in the management of this patient. CT of the chest showed: 1. Tree-in-bud nodularity throughout both lungs. Bibasilar consolidation left greater than right. Small bilateral pleural effusions. Right hilar lymphadenopathy. Findings are consistent with an infectious/inflammatory process. Consider atypical infections including fungal disease. Is currently on meropenem and fluconazole pain as a breathing treatment every 6 hours PN 07/16/2024: Patient is seen and examined at the bedside. He seems to be doing well with his breathing. He was on 3 L and I decreased to 2 L and ask him to monitor his breathing if he feels like he needed to increase he should the let nurse know. During the round with my attending, patient was feeling a little bit better he was encouraged to take a walk and he has been walking since. During the evening, patient was still walking up and down the stairs without the need for oxygen. He is currently on meropenem and fluconazole. Objective vital signs Vital Sign Date Time Temp Pulse Resp B/P (MAP) Pulse Ox O2 Delivery O2 Flow Rate FiO2 07/16/24 17:00 98.1 82 17 109/68 (82) 100 98.1 07/16/24 09:51 Nasal Cannula* 3 32 Total Intake and Output 07/15/24 07/15/24 07/16/24 15:00 23:00 07:00 Intake Total 50 ml 550 ml 1225 ml Output Total 1850 ml 1250 ml Balance 50 ml -1300 ml -25 ml medications Current Medications Medications Dose Ordered Sig/Cj Route Start Time Stop Time Status Last Admin Dose Admin Temazepam 15 mg QHSP PRN PO 07/09/24 21:00 Ondansetron HCl 4 mg Q4HP PRN IV 07/09/24 21:00 07/11/24 11:30 4 MG Acetaminophen 650 mg Q6HP PRN PO 07/09/24 21:00 07/13/24 16:26 650 MG Morphine Sulfate 1 mg Q6HP PRN IV 07/10/24 08:30 07/15/24 22:19 1 MG Famotidine 20 mg Q12HR IV 07/10/24 22:00 07/16/24 08:49 20 MG Meropenem 50 ml @ 17 mls/hr Q8HR IV 07/11/24 14:00 07/16/24 12:42 17 MLS/HR Vancomycin HCl 0 ml @ 0 mls/hr UD IV 07/11/24 11:45 Cancel Guaifenesin 200 mg Q6HP PRN PO 07/12/24 10:30 07/14/24 06:24 200 MG Fluticasone Propionate 50 mcg Q12HR EACHNOSTRI 07/13/24 22:00 07/16/24 08:49 50 MCG Lorazepam 0.5 mg Q8HP PRN IV 07/13/24 11:15 Fluconazole 200 mg DAILY PO 07/14/24 10:00 07/16/24 08:49 200 MG Albuterol 2.5 mg Q6HPRN PRN NEB 07/13/24 23:45 Albuterol 2.5 mg Q6HPRN NEB 07/14/24 15:00 Hold 07/15/24 06:53 2.5 MG Ipratropium [place] 0.5 mg Q6HPRN PRN NEB 07/15/24 12:00 07/15/24 19:03 0.5 MG Nicotine 1 patch DAILY TD 07/16/24 10:00 07/16/24 08:49 1 PATCH Furosemide 20 mg DAILY IV 07/16/24 10:00 07/16/24 09:48 20 MG laboratory and microbiology Laboratory Tests 07/16/24 06:57 Test 07/16/24 06:57 Range/Units Serum Glucose 86 74-106 mg/dL Microbiology Date/Time Source Procedure Growth Status 07/13/24 18:16 Blood Blood Culture - Preliminary NO GROWTH AFTER 72 HOURS OF INCUBATION. Resulted 07/09/24 19:15 Voided Urine Urine Culture - Final Complete Problem List/Assessment/Plan Problem List/Assessment/Plan Assessment Sepsis likely due to pneumonia-patient was fever, tachycardia, leukocytosis, hypotension Acute hypoxic respiratory failure likely due to pneumonia Gram-positive versus Gram-negative Acute pneumonia Gram-positive versus Gram-negative Acute chest pain likely due to pruritus, rule out acute coronary syndrome Leukocytosis likely due to acute Pneumonia Hyponatremia- improved Lactic acidosis Polysubstance abuse: UDS positive for cannabinoids and amphetamine- --> patient was counseled about the effect of polysubstance on health Possible fungal pneumonia 20 pack years Blood culture: No growth so far. Urine Culture: No growth so far. HIV: Negative PLAN Continue Meropenem 1 g IV q.8h Continue fluconazole Vancomycin as per pharmacy-->Stop Azithromycin 500 mg IV daily--> Stop Breathing treatment ( Ipratropium/albuterol q6hr prn) Monitor vitals Pulmonology following appreciated PT: Patient walking on his without oxygen Code status: FULL Goal of care discussed for more than 25 minute Case and plan discussed with Dr. Locke Plan discussed with: Patient My Orders My Orders Orders - LPÓEZ DE OLIVEIRA Procedure Category Date Status Time Furosemide Injection PHA 07/16/24 In Process (Lasix Injection) 10:00 Dietary Evaluation Review Comments: Avoid drugs, monitor PO intakes to meet 75% of his needs Expected Outcomes/Goals: free from drug, improved nutrition health Date of Service: Jul 16, 2024 Billing Provider: MEGAN LOCKE MD Common Visit Codes: [id number] INP/OBS CARE(HIGH) LÓPEZ DE OLIVEIRA Jul 16, 2024 18:40 MEGAN LOCKE MD Jul 16, 2024 22:07
--- NOTE | 2024-07-16 21:51 | DVHPN2 ---
Progress Note - Dictate Date Seen: Jul 16, 2024 Medical Necessity Reason Pt with a Central, PICC or Fol: No Subjective Patient seen and examined at bedside. Remains on supplemental oxygen Overnight events reviewed. vital signs Vital Sign Date Time Temp Pulse Resp B/P (MAP) Pulse Ox O2 Delivery O2 Flow Rate FiO2 07/16/24 21:26 89 20 104/77 07/16/24 21:00 97.5 93 97.5 07/16/24 18:38 Nasal Cannula 1.0 07/16/24 18:38 24 Total Intake and Output 07/15/24 07/15/24 07/16/24 15:00 23:00 07:00 Intake Total 50 ml 550 ml 1225 ml Output Total 1850 ml 1250 ml Balance 50 ml -1300 ml -25 ml medications Current Medications Medications Dose Ordered Sig/Cj Route Start Time Stop Time Status Last Admin Dose Admin Ondansetron HCl 4 mg Q4HP PRN IV 07/09/24 21:00 07/11/24 11:30 4 MG Acetaminophen 650 mg Q6HP PRN PO 07/09/24 21:00 07/13/24 16:26 650 MG Morphine Sulfate 1 mg Q6HP PRN IV 07/10/24 08:30 07/16/24 21:26 1 MG Famotidine 20 mg Q12HR IV 07/10/24 22:00 07/16/24 21:24 20 MG Meropenem 50 ml @ 17 mls/hr Q8HR IV 07/11/24 14:00 07/16/24 21:25 17 MLS/HR Vancomycin HCl 0 ml @ 0 mls/hr UD IV 07/11/24 11:45 Cancel Guaifenesin 200 mg Q6HP PRN PO 07/12/24 10:30 07/14/24 06:24 200 MG Fluticasone Propionate 50 mcg Q12HR EACHNOSTRI 07/13/24 22:00 07/16/24 21:25 50 MCG Lorazepam 0.5 mg Q8HP PRN IV 07/13/24 11:15 Fluconazole 200 mg DAILY PO 07/14/24 10:00 07/16/24 08:49 200 MG Albuterol 2.5 mg Q6HPRN PRN NEB 07/13/24 23:45 Albuterol 2.5 mg Q6HPRN NEB 07/14/24 15:00 Hold 07/15/24 06:53 2.5 MG Ipratropium [place] 0.5 mg Q6HPRN PRN NEB 07/15/24 12:00 07/15/24 19:03 0.5 MG Nicotine 1 patch DAILY TD 07/16/24 10:00 07/16/24 08:49 1 PATCH Furosemide 20 mg DAILY IV 07/16/24 10:00 07/16/24 09:48 20 MG objective Gen.: Patient lying in bed in no apparent distress. On supplemental oxygen. Head: Normocephalic, atraumatic. Eyes: EOMI/PERRLA. Ears: Normal hearing. Normal anatomy. Neck/trachea: Trachea midline, supple. Nose: Normal external anatomy. Mouth: Moist mucous membranes. Chest: Decreased air entry bilaterally. No wheezing or rhonchi. Cardiovascular: Positive S1, positive S2. Regular rate and rhythm. Abdomen: Positive bowel sounds in all 4 quadrants. Soft, non-tender, non- distended. : Deferred. Rectal: Deferred. Skin: Warm, dry. Intact. Extremities: 2+ radial pulses bilaterally. No lower extremity edema. Neuro: Awake, alert, oriented x3. No gross motor or sensory deficits. Cranial nerves II through XII intact. Gait not assessed. laboratory and microbiology Laboratory Tests 07/16/24 06:57 Test 07/16/24 06:57 Range/Units Serum Glucose 86 74-106 mg/dL Assessment/Plan Impression: Acute hypoxic respiratory failure Dependence on supplemental oxygen Multifocal pneumonia Marijuana use Substance abuse Pleural effusion Atelectasis Events: Remains on supplemental oxygen, 2 LPM NC Taper O2 as tolerated Add humidifier. Continue antibiotics Complete antifungal Incentive spirometry Labs and imaging reviewed. Rest of plan as noted below. Plan: Supplemental oxygen Titrate to keep O2 sats above 92%. Taper O2 as tolerated. ABG reviewed; notable for alkalemia CXR reviewed, demonstrates no acute abnormalities CT chest w/o contrast remarkable for tree-in-bud nodularity throughout both lungs. Bibasilar consolidation, left greater than right. Small bilateral pleural effusions. Right hilar lymphadenopathy.. Echo demonstrates EF of 50-55%. Diflucan course Continue bronchodilators. Continue antibiotics Incentive spirometry Pain control Avoid oversedation Diurese to euvolemia w/ Lasix Monitor renal function. Monitor electrolytes. Supplement as necessary. Monitor ins and outs. DVT prophylaxis. Prognosis: Poor given patient's multiple co-morbidities. Rest of plan per hospitalist and other consultants. Thank you, Dr. Knowles, for allowing me to participate in this patient's care. Further recommendations will depend on the patient's clinical course. Please do not hesitate to contact me if you have any questions or concerns. This medical document was created using an electronic medical record system with [employer] dictation system. Although these documentations are being carefully reviewed, there may still be some phonetic and typographical changes. The errors are purely typographical, due to imperfection on the software program, and do not reflect any compromise in the patient's medical care. Dietary Evaluation Review Comments: Avoid drugs, monitor PO intakes to meet 75% of his needs Expected Outcomes/Goals: free from drug, improved nutrition health Plan discussed with: Patient, Other (FLAKO Sprague) FERNY PRESCOTT MD Jul 16, 2024 21:51
[2024-07-17] VITALS (8 sets, daily range): BP systolic 97–111; BP diastolic 46–63; PULSE 60–80; RESP 19–20; TEMP 97.5–98.1; O2SAT 91–98
--- NOTE | 2024-07-17 12:21 | DVHDSRES ---
Discharge Summary Date of Admission Resident Creating Document: LÓPEZ DE OLIVEIRA RESIDENT Jul 09, 2024 at 21:00 Date of Discharge: Jul 17, 2024 Admitting Diagnosis Community acquired pneumonia Labs/Diagnostic Data: PATIENT: OWEN ROTH EACCT: [id number] UNIT: [id number] : 1990 [facility] AGE / SEX: 34 / M ADM STATUS: ADM IN SERVICE 1311 ORDERING PHYSICIAN: FERNY PRESCOTT MD PROCEDURE(s): CXICT - CHEST WITH CONTRAST REASON: nonresolving pneumonia ORDER NUMBER(s): [id number], ACCESSION NUMBER(s): [id number] Procedure: CT CHEST WITH CONTRAST Reason for study/Clinical History: 34 years old, Male; nonresolving pneumonia. Comparison Study: None available at time of dictation. Exam Date: 07/15/2024 01:57 PM Radiation Dose Information: CT Dose: CTDI volume is 9 mGy. Dose-length product is 391.65 mGy*cm Contrast: Type of contrast: Omni 300 Contrast inject: 100 TECHNIQUE: After the uneventful administration of intravenous contrast intravenously, CT imaging was performed through the chest. Coronal and sagittal reformations were performed by the technologist. FINDINGS: Lower Neck: Visualized portions of the thyroid gland are unremarkable. Aorta and Vasculature: Normal caliber of thoracic aorta. Lymph Nodes: Right hilar lymphadenopathy. Mediastinum: Heart size is normal. There is no pericardial effusion. The esophagus is unremarkable. Lungs: Tree-in-bud nodularity in both lungs right greater than left. Bibasilar consolidation left greater than right. Small bilateral pleural effusions [id number]. Musculoskeletal: No acute osseous abnormality. Upper abdomen: Limited portions of the upper abdomen are unremarkable. IMPRESSION: 1. Tree-in-bud nodularity throughout both lungs. Bibasilar consolidation left greater than right. Small bilateral pleural effusions. Right hilar lymphadenopathy. Findings are consistent with an infectious/inflammatory process. Consider atypical infections including fungal disease. Clinical correlation and continued follow-up is recommended. 2. All CT scans at this medical facility are performed using dose modulation techniques as appropriate to a performed exam including the following: Automated exposure control was utilized; Adjustment of the MA And/or KV according to patient size; And use of iterative reconstruction technique. HS:Y ATED BY: SEGUNDO TOMAS MD PATIENT: OWEN ROTH EACCT: [id number] UNIT: [id number] : 1990 LOC: [facility] ROOM / BED: [facility] / AGE / SEX: 34 / M ADM STATUS: ADM IN SERVICE 1310 ORDERING PHYSICIAN: FERNY PRESCOTT MD PROCEDURE(s): CXR1 - CHEST XRAY 1 VIEW REASON: increased o2 requirements ORDER NUMBER(s): [id number], ACCESSION NUMBER(s): [id number] CHEST RADIOGRAPH Indication: increased o2 requirements Technique: Single frontal view of the chest was obtained Comparison: XY CHEST PORTABLE on DOS: 07/09/24 FINDINGS: Lines and Tubes: None Lungs: No focal consolidation. Pleura: No effusion. No pneumothorax. Cardiomediastinal contours: Unremarkable Bones: No acute osseous abnormality. IMPRESSION: No acute cardiopulmonary disease. RING PHYSICIAN: FAB MELGAR PROCEDURE(s): CXR2 - CHEST TWO VIEWS ROUTINE REASON: SOB ORDER NUMBER(s): [id number], ACCESSION NUMBER(s): [id number] CLINICAL INFORMATION: 34 years old, Male; shortness of breath. TECHNIQUE: Frontal and lateral chest radiographs were obtained. COMPARISON: None FINDINGS: Lungs: Atelectasis in the lung bases. No focal consolidation visualized. No pneumothorax or pleural effusion visualized. Cardiac: Heart size is within normal limits. Pulmonary vasculature: Unremarkable Mediastinum/saida: Within normal limits. Bones: No evidence of acute osseous abnormality. Other: No other significant finding. IMPRESSION: Bibasilar atelectasis with no focal consolidation visualized. Otherwise, no evidence of acute disease in the chest. Laboratory Results Test 07/16/24 06:57 07/15/24 13:48 07/14/24 05:15 07/14/24 01:04 White Blood Count 6.2 10^3/uL (4.4-10.8) Red Blood Count 4.64 10^6/uL (4.5-5.90) Hemoglobin 13.7 g/dL (13.5-17.5) Hematocrit 40.4 % (41.0-53.0) Mean Corpuscular Volume 87.1 fL (80.0-100.0) Mean Corpuscular Hemoglobin 29.4 pg (28.0-32.0) Mean Corpuscular Hemoglobin Concent 33.8 g/dL (32.0-36.0) Red Cell Distribution Width 13.9 % (11.8-14.3) Platelet Count 369 10^3/uL (140-450) Mean Platelet Volume 7.4 fL (6.9-10.8) Neutrophils (%) (Auto) % (37.0-80.0) Lymphocytes (%) (Auto) % (10.0-50.0) Monocytes (%) (Auto) % (0.0-12.0) Basophils (%) (Auto) % (0.0-2.0) Neutrophils # (Auto) 10 ^3/uL (1.6-8.6) Lymphocytes # (Auto) 10 ^3/uL (0.4-5.4) Monocytes # (Auto) 10 ^3/uL (0-1.3) Differential Total Cells Counted 100.0 (100) Neutrophils % (Manual) 70 (37.0-80.0) Band Neutrophils % (Manual) 0 Lymphocytes % (Manual) 14 (10.0-50.0) Monocytes % (Manual) 14 (0-12) Eosinophils % (Manual) 0 (0-7) Basophils % (Manual) 0 (0.0-2.0) Metamyelocytes % (manual) 0 Myelocytes % (Manual) 2 Promyelocytes % (Manual) 0 Blast Cells % (Manual) 0 Reactive Lymphocytes 0 Platelet Estimate Adequate Sodium Level 137 mmol/L (136-145) Potassium Level 4.0 mmol/L (3.5-5.1) Chloride Level 105 mmol/L (98-107) Carbon Dioxide Level 27 mmol/L (20-31) Anion Gap 5 (5-15) Blood Urea Nitrogen 12 mg/dL (9-23) Creatinine 0.68 mg/dL (0.700-1.30) Glomerular Filtration Rate Calc 124 mL/min (>90) BUN/Creatinine Ratio 17.6 (10.0-20.0) Serum Glucose 86 mg/dL (74-106) Calcium Level 9.3 mg/dL (8.7-10.4) Total Bilirubin 0.2 mg/dL (0.2-1.0) Aspartate Amino Transferase (AST) 39 U/L (13-40) Alanine Aminotransferase (ALT) 48 U/L (7-40) Alkaline Phosphatase 66 U/L (46-116) Total Protein 6.3 g/dL (5.7-8.2) Albumin 3.7 g/dL (3.2-4.8) Blood Gas Specimen Type Arterial Blood Gas Sample Site Right radial Blood Gas Patient Temperature 37.0 Arterial Blood Date Drawn Arterial Blood pH 7.475 (7.350-7.450) Arterial Blood Partial Pressure CO2 34.8 mmHg (35.0-48.0) Arterial Blood Partial Pressure O2 61.5 mmHg (83.0-108.0) Arterial Blood HCO3 25.0 mmol/L (21.0-28.0) Arterial Blood Oxygen Saturation 91.1 % (94.0-98.0) Arterial Blood Base Excess 1.9 mmol/L (-2.0-3.0) Arterial Blood Oxyhemoglobin 90.2 % (94.0-98.0) Arterial Blood Carboxyhemoglobin 0.7 % (0.5-1.5) Arterial Blood Methemoglobin 0.3 % (0.0-1.5) Klaus Test Yes Blood Gas Total Hemoglobin 14.40 g/dL (13.5-17.5) Blood Gas Modality Room air FiO2 % 21.0 Large Platelets Few Vancomycin Level Trough 10.6 ug/mL (5-10) Test 07/13/24 13:27 07/12/24 07:13 07/11/24 08:28 07/10/24 11:39 Eosinophils (%) (Auto) 0.9 % (0.0-7.0) Eosinophils # (Auto) 0.1 10 ^3/uL (0-0.8) Basophils # (Auto) 0.1 10 ^3/uL (0-0.2) Nucleated Red Blood Cells 0.1 % HIV (1&2) Antibody Negative (Negative) Magnesium Level 1.8 mg/dL (1.6-2.6) Lactic Acid Level 1.6 mmol/L (0.4-2.0) POC Glucose 159 mg/dl (70-106) Test 07/10/24 08:38 07/10/24 05:30 07/10/24 04:20 07/09/24 22:44 D-Dimer, Quantitative 0.93 mg/L FEU (0.0-0.49) Influenza Type A Antigen Negative (Negative) Influenza Type B Antigen Negative (Negative) SARS-CoV-2 Antigen (Rapid) Negative (NEGATIVE) Red Blood Cell Morphology Normal Hemoglobin A1c 5.7 % A1C (<5.7) Thyroid Stimulating Hormone (TSH) 4.53 uIU/mL (0.55-4.78) Troponin I High Sensitivity < 3 ng/L (</=54) Test 07/09/24 19:25 07/09/24 19:15 B-Type Natriuretic Peptide 258.70 pg/mL (0-100) Plasma/Serum Blood Alcohol < 3.0 mg/dL (<10) Urine Color Light-orange (Yellow) Urine Clarity Turbid (Clear) Urine pH 5.5 (5.0-9.0) Urine Specific [place] 1.019 (1.001-1.035) Urine Protein 1+ (Negative) Urine Ketones Negative (Negative) Urine Blood Negative /uL (Negative) Urine Nitrite Negative (Negative) Urine Bilirubin Negative (Negative) Urine Urobilinogen Normal mg/dL (Negative) Urine Leukocyte Esterase Negative /uL (Negative) Urine RBC 1 /hpf (0 - 3) Urine WBC 7 /hpf (0 - 3) Urine Squamous Epithelial Cells None seen /hpf (<5) Urine Bacteria None seen /hpf (None Seen) Urine Mucus Few (None Seen) Urine Sperm Present /hpf (None Seen) Urine Glucose Normal mg/dL (Normal) Urine Opiates Screen Neg (NEGATIVE) Urine Fentanyl Screen Neg (NEGATIVE) Urine Barbiturates Screen Neg (NEGATIVE) Urine Phencyclidine Screen Neg (NEGATIVE) Urine Amphetamines Screen Pos (NEGATIVE) Urine Benzodiazepines Screen Neg (NEGATIVE) Urine Cocaine Screen Neg (NEGATIVE) Urine Cannabinoids Screen Pos (NEGATIVE) Other Laboratory Tests 07/16/24 06:57 Brief Hx & Hospital Course: Hospital course Patient is 34 years old male with polysubstance abuse came with a complaint of shortness of breaths for last 2 days. As per patient patient has been having productive cough with greenish yellowish phlegm and intermittent fever for last 2 days. Patient also reported feeling short of breath for the same duration. Patient reported any sick contact. Patient denied any dysuria, constipation or diarrhea, acute joint pain or swelling, dysarthria or change in vision. Initial lab workup revealed leukocytosis with WBC 16.1, mild hyponatremia with sodium 130 3> 129, lactic acidosis with lactic acid 5.6, hypomagnesemia with a magnesium 1.2, bilirubin 1.3, mildly elevated BNP 258, UDS positive for amphetamine and cannabinoids. Urinalysis negative for UTI. Chest x-ray - Possible right infrahilar left lower lobe airspace disease. This could also be due to overlying chest soft tissues. Echo 2D revealed-Ejection fraction is estimated at 50-55%. PA systolic pressure is estimated at 20-25 mm Hg. EXAMINATION Gen.: Patient lying in bed in no apparent distress. On supplemental oxygen. Head: Normocephalic, atraumatic. Eyes: EOMI/PERRLA. Ears: Normal hearing. Normal anatomy. Neck/trachea: Trachea midline, supple. Nose: Normal external anatomy. Mouth: Moist mucous membranes. Chest: Mild crackles in the left lower lobe. No wheezing or rhonchi. Cardiovascular: Positive S1, positive S2. Regular rate and rhythm. Abdomen: Positive bowel sounds in all 4 quadrants. Soft, non-tender, non- distended. : Deferred. Rectal: Deferred. Skin: Warm, dry. Intact. Extremities: 2+ radial pulses bilaterally. No lower extremity edema. Neuro: Awake, alert, oriented x3. No gross motor or sensory deficits. Cranial nerves II through XII intact. Gait is good Diagnosis Sepsis likely due to pneumonia-patient was fever, tachycardia, leukocytosis, hypotension Acute hypoxic respiratory failure likely due to pneumonia Gram-positive versus Gram-negative Acute pneumonia Gram-positive versus Gram-negative Acute chest pain likely due to pruritus, rule out acute coronary syndrome Leukocytosis likely due to acute Pneumonia Hyponatremia- improved Lactic acidosis Polysubstance abuse: UDS positive for cannabinoids and amphetamine- Possible fungal pneumonia 20 pack years Discharge planing Doxycycline 100 mg b.i.d. for 10 days Albuterol 1 puff every 6 hours Medrol Navid Patient has been advised and stroke and a thoroughly educated on smoking cessation Advised patient to follow up at the discharge clinic. Discharge planning discussed with Dr. Locke Condition at Discharge: Stable Final Diagnosis/Problems List Sepsis likely due to pneumonia-patient was fever, tachycardia, leukocytosis, hypotension Acute hypoxic respiratory failure likely due to pneumonia Gram-positive versus Gram-negative Acute pneumonia Gram-positive versus Gram-negative Acute chest pain likely due to pruritus, rule out acute coronary syndrome Leukocytosis likely due to acute Pneumonia Hyponatremia Lactic acidosis Polysubstance abuse: UDS positive for cannabinoids and amphetamine- Possible fungal pneumonia Discharge Disposition: Home Discharge Instruct/Medications Diet: Regular Activity: Light activity Follow Up/Referral: 7 days discharge clinic Medications: Doxycycline 100 mg b.i.d. for 10 days Albuterol 1 puff every 6 hours Medrol pack Discharge Statement: "Patient was advised to return to the ER or call 911 if any headaches, dizziness, shortness of breath, chest pain, abdominal pain, bleeding, fevers, or worsening of medical condition. Patient was counseled about treatment plan, medications, possible side effects, patientverbalized understanding. All questions were answered to the best of my ability. This discharge took greater then 30 minutes in planning, reviewing documentation, counseling the patient, and discussing with other team members." ASSESSMENT ASSESSMENT Assessment Sepsis likely due to pneumonia-patient was fever, tachycardia, leukocytosis, hypotension Acute hypoxic respiratory failure likely due to pneumonia Gram-positive versus Gram-negative Acute pneumonia Gram-positive versus Gram-negative Acute chest pain likely due to pruritus, rule out acute coronary syndrome Leukocytosis likely due to acute Pneumonia Hyponatremia- improved Lactic acidosis Polysubstance abuse: UDS positive for cannabinoids and amphetamine- Possible fungal pneumonia LÓPEZ DE OLIVEIRA RESIDENT Jul 17, 2024 12:21
[2024-07-17] MEDS ORDERED: DOXY-286 PO (12:31)
[2024-07-17] MEDS ORDERED: METH4PAK PO (12:31)
[2024-07-17] MEDS ORDERED: ALBU0.084 IN (12:31)
--- NOTE | 2024-07-17 23:42 | DVHPN2 ---
Progress Note - Dictate Date Seen: Jul 17, 2024 Medical Necessity Reason Pt with a Central, PICC or Fol: No Subjective Patient seen and examined at bedside. Remains on supplemental oxygen Overnight events reviewed. vital signs Vital Sign Date Time Temp Pulse Resp B/P (MAP) Pulse Ox O2 Delivery O2 Flow Rate FiO2 07/17/24 14:10 98.1 80 19 96 07/17/24 13:00 111/46 (67) 07/17/24 11:04 Nasal Cannula 1.0 07/17/24 11:04 24 Total Intake and Output 07/16/24 07/16/24 07/17/24 15:00 23:00 07:00 Intake Total 50 ml 1144 ml 530 ml Output Total 1800 ml 1100 ml Balance 50 ml -656 ml -570 ml medications Current Medications Medications Dose Ordered Sig/Cj Route Start Time Stop Time Status Last Admin Dose Admin Vancomycin HCl 0 ml @ 0 mls/hr UD IV 07/11/24 11:45 Cancel objective Gen.: Patient lying in bed in no apparent distress. On supplemental oxygen. Head: Normocephalic, atraumatic. Eyes: EOMI/PERRLA. Ears: Normal hearing. Normal anatomy. Neck/trachea: Trachea midline, supple. Nose: Normal external anatomy. Mouth: Moist mucous membranes. Chest: Decreased air entry bilaterally. No wheezing or rhonchi. Cardiovascular: Positive S1, positive S2. Regular rate and rhythm. Abdomen: Positive bowel sounds in all 4 quadrants. Soft, non-tender, non- distended. : Deferred. Rectal: Deferred. Skin: Warm, dry. Intact. Extremities: 2+ radial pulses bilaterally. No lower extremity edema. Neuro: Awake, alert, oriented x3. No gross motor or sensory deficits. Cranial nerves II through XII intact. Gait not assessed. laboratory and microbiology Laboratory Tests 07/16/24 06:57 Test 07/16/24 06:57 Range/Units Serum Glucose 86 74-106 mg/dL Assessment/Plan Impression: Acute hypoxic respiratory failure Dependence on supplemental oxygen Multifocal pneumonia Marijuana use Substance abuse Pleural effusion Atelectasis Events: Remains on supplemental oxygen, 2 LPM NC, humidifier Taper O2 as tolerated Continue bronchodilators Continue antibiotics Complete antifungal Incentive spirometry Assess for home O2 requirements. Patient is stable for discharge from the pulmonary standpoint. Disposition per hospitalist. Labs and imaging reviewed. Rest of plan as noted below. Plan: Supplemental oxygen Titrate to keep O2 sats above 92%. Taper O2 as tolerated. ABG reviewed; notable for alkalemia CXR reviewed, demonstrates no acute abnormalities CT chest w/o contrast remarkable for tree-in-bud nodularity throughout both lungs. Bibasilar consolidation, left greater than right. Small bilateral pleural effusions. Right hilar lymphadenopathy.. Echo demonstrates EF of 50-55%. Diflucan course Continue bronchodilators. Continue antibiotics Incentive spirometry Pain control Avoid oversedation Diurese to euvolemia w/ Lasix Monitor renal function. Monitor electrolytes. Supplement as necessary. Monitor ins and outs. DVT prophylaxis. Prognosis: Poor given patient's multiple co-morbidities. Rest of plan per hospitalist and other consultants. Thank you, Dr. Knowles, for allowing me to participate in this patient's care. Further recommendations will depend on the patient's clinical course. Please do not hesitate to contact me if you have any questions or concerns. This medical document was created using an electronic medical record system with [employer] dictation system. Although these documentations are being carefully reviewed, there may still be some phonetic and typographical changes. The errors are purely typographical, due to imperfection on the software program, and do not reflect any compromise in the patient's medical care. Dietary Evaluation Review Comments: Avoid drugs, monitor PO intakes to meet 75% of his needs Expected Outcomes/Goals: free from drug, improved nutrition health Plan discussed with: Patient, Other (FLAKO Najera) FERNY PRESCOTT MD Jul 17, 2024 23:42
== END 2024-07-17 15:56 | disposition home or self-care (01) | DRG 720 ==
LOC: ER 17:57 → EDBD 17:57 → OVERFLOW 21:00 → WEST WING 07-11 18:02 → TELE-WESTW 07-11 18:09
PROVIDERS: ADMIT Internal Medicine; ATTEND Emergency Medicine
DX: A41.50 Gram-negative sepsis, unspecified (principal); J96.01 Acute respiratory failure with hypoxia; J15.69 Pneumonia due to other Gram-negative bacteria; E87.20 Acidosis, unspecified; J15.9 Unspecified bacterial pneumonia; E87.1 Hypo-osmolality and hyponatremia; J90 Pleural effusion, not elsewhere classified; I24.9 Acute ischemic heart disease, unspecified; E83.42 Hypomagnesemia; L29.9 Pruritus, unspecified; F15.10 Other stimulant abuse, uncomplicated; R59.0 Localized enlarged lymph nodes; F12.10 Cannabis abuse, uncomplicated; Z59.00 Homelessness unspecified; Z99.81 Dependence on supplemental oxygen
CPT/HCPCS: 36415; 36600; 71045; 71046; 71260; 80048; 80053; 80202; 80307; 80320; 81001; 82565; 82805; 82962; 83036; 83605; 83735; 83880; 84443; 84484; 85007; 85025; 85027; 85379; 86703; 87040; 87086; 87426; 87804; 93005; 93306; 94640; G0378; J2185; J2405; J3490; J7042; J7060